=== PATIENT | female | born 1975 | race Caucasian/White ===

== ENCOUNTER 2016-04-03 09:21 | Emergency (ER) | payer OTHER ==
[2016-04-03] MEDS ORDERED: ASPIRIN 81 MG CHEW TABLET As Ordered ONE (10:20)
[2016-04-03 10:28] LABS: BASO # 0.1 K/mm3 (0.0-0.2); BASO % 0.7 % (0.0-1.0); EOS # 0.1 K/mm3 (0.0-0.50); EOS % 1.2 % (0.0-3.0); LARGE UNSTAINED CELL # 0.2 K/mm3 (0.0-0.4); LARGE UNSTAINED CELL % 1.7 % (0.0-4.0); LYMPH # 2.7 K/mm3 (1.5-4.5); LYMPH % 25.7 % (24.0-44.0); MEAN CORPUSCULAR HEMOGLOBIN 29.2 pg (27.0-33.0); MEAN CORPUSCULAR HGB CONC 32.6 g/dl (32.0-36.5); MEAN CORPUSCULAR VOLUME 89.6 fl (80.0-96.0); MONO # 0.6 K/mm3 (0.0-0.8); MONO % 5.2 % (0.0-5.0); NEUTROPHILS % 65.6 % (36.0-66.0); PLATELET COUNT, AUTOMATED 347 k/mm3 (150-450); RED CELL DISTRIBUTION WIDTH 12.9 % (11.5-14.5); WHITE BLOOD COUNT 10.6 K/mm3 (4.0-10.0)
[2016-04-03 10:36] LABS: ANION GAP 8 MEQ/L (8-16); BLOOD UREA NITROGEN 9 MG/DL (7-18); CARBON DIOXIDE LEVEL 28 MEQ/L (21-32); CHLORIDE LEVEL 106 MEQ/L (98-107); CREATININE FOR GFR 0.88 MG/DL (0.55-1.02); FREE T4 1.05 NG/DL (0.76-1.46); GLOMERULAR FILTRATION RATE > 60.0 (>58); GLUCOSE, FASTING 124 MG/DL (70-105); POTASSIUM SERUM 3.8 MEQ/L (3.5-5.1); SODIUM LEVEL 142 MEQ/L (136-145)
--- NOTE | 2016-04-03 12:25 | REP ---
PORTABLE CHEST: AP portable view of the chest is performed. Comparison 06/07/2013. There is no acute infiltrate. Mild fibrotic changes are seen bilaterally. The heart is normal in size. The mediastinal silhouette is unchanged. IMPRESSION: No acute infiltrate. Signed by Kerwin Hart MD 04/03/2016 12:39 P
--- NOTE | 2016-04-03 14:44 | EDDOCDS ---
Physician Documentation [facility] Name: Althea Cedillo Age: 40 yrs Sex: Female : 1975 Arrival Date: 04/03/2016 Time: 09:21 Bed 12 Private MD: KANWAL FIORE Disposition: 04/03 13:39 Critical Care: Critical care not applicable. pc Disposition: 04/03/16 14:28 Discharged to Home/Self Care. Impression: Palpitations, Chest pain, unspecified. - Condition is Stable. - Discharge Instructions: Nonspecific Chest Pain, Palpitations. - Prescriptions for Aspirin 81 mg Oral - take 1 tablet by ORAL route once daily; 30 tablet. - Medication Reconciliation, Local Pharmacy Hours form. - Follow up: Angel Herr; When: April 14, at 1:00pm; Reason: Further diagnostic work-up, Recheck today's complaints, To establish care. - Problem is new. - Symptoms have improved. HPI: 10:22 This 40 yrs old Female presents to ER via Walkin/Carried/Asstd with pc complaints of Palpitations. 10:22 The history is obtained from the patient. She was at work, doing her usual chores, pc lifting trays, when she suddenly "felt weird. My heart was beating funny and I thought I was going to pass out. I had to sit down. I felt dizzy and then my chest felt heavy", pointing to her midsternum. She denies any headache, visual changes, nausea ore vomiting. She presents stating her jaws are aching and are sore just to touch or chew. She has no palpitations currently but has upper chest "aching". At their worst, the symptoms were a 8 out of 10. In the emergency department, the symptoms are a 3 out of 10. There were no modifying factors noted. The patient has not experienced similar symptoms in the past. The patient has not recently seen a physician. Historical: - Allergies: SULFA (SULFONAMIDES) (Hives); - Home Meds: 1. Januvia 100 mg oral tab 1 tab once daily 2. ranitidine HCl 300 mg Oral cap 1 cap once daily 3. Mirena 20 mcg/24 hr (5 years) intrauterine IUD - PMHx: Diabetes - NIDDM: controlled; GERD; - PSHx: none; - The history from nurses notes was reviewed: and I agree with what is documented. - Social history: Smoking status: Patient uses tobacco products, current every day smoker. No barriers to communication noted, The patient speaks fluent Mohawk. - Family history: Not pertinent. - : The pt / caregiver states he / she is not on anticoagulants. Home medication list is obtained from the patient. - Hospitalizations: : No recent hospitalization is reported. - Exposure Risk Screening:: None identified. - Immunization history:: All immunizations up-to-date. - Social history:: the patient smokes cigarettes 1ppd the patient drinks alcohol. 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 pc Exam: 10:22 General Appearance: no acute distress, alert, anxious. pc 10:22 EENT: normal eye inspection, ears, nose and throat normal, pharynx normal, mucous membranes moist 10:22 Neck: The exam reveals no acute abnormalities. ROM is normal and painless. No nuchal rigidity is noted.. 10:22 Respiratory: no respiratory distress, normal breath sounds, chest non-tender. 10:22 CVS: regular pulse rate, regular rhythm, normal S1 and S2, no murmurs, strong peripheral pulses, normal capillary refill. 10:22 Abdomen: soft, non-tender, no organomegaly, normal bowel sounds. 10:22 Back: normal inspection. 10:22 : bladder is non-distended, non-tender. 10:22 Skin: skin color is normal, warm, dry, no rashes, no lesions. 10:22 Extremities: The extremities have a grossly normal appearance, are non-tender, without acute ROM abnormalities, no pedal edema. 10:22 Neuro: oriented x 3, cranial nerves normal as tested, no motor deficits, no sensory deficits, normal gait. 10:22 Psych: normal mood. Vital Signs: 09:23 BP 144 / 75; Pulse 92; Resp 18; Temp 97.7(O); Pulse Ox 100% on R/A; Weight 78.93 kg / elp 174.01 lbs (R); Height 5 ft. 8 in. (172.72 cm) (R); Pain 8/10; 10:21 BP 112 / 68 (auto/); ead 10:23 Pulse 72 MON; Resp 16; Pulse Ox 97% on R/A; Pain 3/10; ead 10:30 BP 106 / 61; Pain 0/10; ead 10:58 BP 124 / 65 (auto/); ead 10:58 Pulse 66 MON; Pulse Ox 98% ; ead 11:13 BP 109 / 55 (auto/); ead 11:15 Pulse 62 MON; Pulse Ox 97% ; ead 11:28 BP 109 / 62 (auto/); ead 11:28 Pulse 62 MON; Pulse Ox 96% ; ead 11:43 BP 102 / 62 (auto/); ead 11:44 Pulse 70 MON; Pulse Ox 95% ; ead 11:58 BP 97 / 58 (auto/); ead 12:10 Pulse 72 MON; Pulse Ox 95% ; ead 12:13 BP 97 / 55 (auto/); ead 12:13 Pulse 70 MON; Pulse Ox 94% ; ead 12:28 BP 101 / 55 (auto/); ead 12:28 Pulse 68 MON; Pulse Ox 95% ; ead 12:43 BP 95 / 52 (auto/); ead 12:43 Pulse 70 MON; Pulse Ox 96% ; ead 14:36 BP 125 / 66 (auto/); ead 14:36 Pulse 84 MON; Resp 16; Temp 97.7(O); Pulse Ox 97% on R/A; Pain 0/10; ead 09:23 Body Mass Index 26.46 (78.93 kg, 172.72 cm) elp MDM: 09:27 ECG WITH READING ER PHYS+CARDIAG ordered. EDMS 09:47 Test interpretation: EKG. pc 10:09 Aspirin Chewable Tablet 324 mg PO once ordered. pc 10:09 Case Manager Specialist/Pulse Ox/q 30 min VS ordered. pc 10:09 IV Saline Lock ordered. pc 10:09 Rhythm Strip to chart ordered. pc 10:09 Nitrostat 0.4 mg Sublingual once ordered. pc 10:10 Basic Metabolic Profile Ordered. EDMS 10:10 CBC with Diff Ordered. EDMS 10:10 Cardiac Injury Profile Ordered. EDMS 10:10 Troponin Ordered. EDMS 10:10 TSH with Free T4 Ordered. EDMS 10:10 A1C Ordered. EDMS 10:11 portable chest Ordered. EDMS 10:13 Financial registration complete. lg 10:17 [facility] [place] Payment Agreement was scanned into [employer] and attached to record. lg 10:22 Differential Diagnosis: palpitations, central chest pressure r/o ACS. Plan: labs, EKG, pc imaging, meds. Data reviewed: old medical records, vital signs, nurses notes, EKG(s). 10:49 Basic Metabolic Profile Reviewed. pc 10:49 CBC with Diff Reviewed. pc 10:49 Cardiac Injury Profile Reviewed. pc 10:49 Troponin Reviewed. pc 10:49 TSH with Free T4 Reviewed. pc 10:56 A1C Reviewed. pc 10:57 Redraw CIP &Troponin (put time in details section) ordered. pc 10:57 Repeat EKG (put time details section) ordered. pc 11:04 Redraw CIP &Troponin (put time in details section) complete. lbd 11:04 Repeat EKG (put time details section) complete. lbd 11:07 CARDIAC MARKER PANEL Ordered. EDMS 11:08 ECG WITH READING ER PHYS ordered. EDMS 13:32 CARDIAC MARKER PANEL Reviewed. pc 13:32 portable chest Reviewed. pc 13:39 Test interpretation: EKG. pc 13:39 Test interpretation: LAB - all labs as ordered have been reviewed, interpreted and pc considered in the overall management of the clinical presentation; X-RAY - interpreted by Radiologist and personally reviewed, 1 view chest no acute disease. The patient has been re-examined and re-evaluated. The patient's symptoms have mildly improved after treatment. Physician consultation: Dr. Angel Herr was contacted at 13:40, regarding patient's condition, and will see patient in ED. Disposition: The historical points, examination findings, and any diagnostic results supporting the provided diagnosis, were discussed with the patient or legal guardian. The need for outpatient follow up with the provider listed on their discharge instructions was discussed. They were encouraged to return to [facility], or the nearest ED, if symptoms worsen/persist, or for any other questions/concerns. EC:47 Rate is 72 beats/min. Rhythm is regular, Normal Sinus Rhythm. QRS [place] is Normal. CT pc interval is normal. QRS interval is normal. QT interval is normal. No Q waves. T waves are Normal. No ST changes noted. Clinical impression: Normal Sinus Rhythm. 13:39 Rate is 61 beats/min. Rhythm is regular, Normal Sinus Rhythm. QRS [place] is Normal. CT pc interval is normal. QRS interval is normal. QT interval is normal. No Q waves. T waves are Normal. No ST changes noted. Clinical impression: Normal Sinus Rhythm. Administered Medications: 10:24 Drug: Aspirin 324 mg [aspirin 81 mg chewable tablet (4 tabs)] Route: PO; ead 10:24 Drug: Nitrostat 0.4 mg [Nitrostat 0.4 mg sublingual tablet (1 tabs)] Route: Sublingual; ead 10:30 Follow up: BP 106 / 61; Pain 0/10 Adult; Response: No Adverse Reaction; Pain is resolvedead Signatures: Dispatcher [employer] EDMS Tyrel Peacock MD MD pc Daly, Linda, Structural Steel Worker Apprentice Unit lbd Sebas James, Carlitos Urbina lg Sandhya Pal RN RN jjr Dunaway, Emily, RN RN ead The chart was reviewed and I authenticate all verbal orders and agree with the evaluation and treatment provided.Attachments: 10:17 [facility] [place] Payment Agreement lg MTDD
--- NOTE | 2016-04-03 14:44 | EDDOCDS ---
Nurse's Notes [facility] Name: Althea Cedillo Age: 40 yrs Sex: Female : 1975 Arrival Date: 04/03/2016 Time: 09:21 Bed 12 Private MD: KANWAL FIORE Diagnosis: Palpitations;Chest pain, unspecified Presentation: 04/03 09:29 Presenting complaint: Patient states: sudden onset substernal chest pressure one hour jjr ago reports dizziness and SOB. Aspirin was not taken prior to arrival. Adult Sepsis Screening: The patient does not have new or worsening altered mentation. Patient's respiratory rate is less than 22. Systolic blood pressure is greater than 100. Patient has a qSOFA score of 0- Negative Sepsis Screen. Suicide/Homicide risk assessment- the patient denies having any suicidal and/or homicidal ideations and does not present with any other emotional, behavioral or mental health complaints. Status: Patient is not a customer servicer or dependent. Transition of care: patient was not received from another setting of care. 09:29 Acuity: SARAH Level 2 jjr 09:29 Method Of Arrival: Walkin/Carried/Asstd jjr Triage Assessment: 09:33 General: Appears uncomfortable, Behavior is appropriate for age. Pain: Location: jjr mid-sternal area. HIV screening NA for this visit Offered previously. Cardiovascular: Chest pain is described as Pain is 7 out of 10 on a pain scale. radiates to left chest episodes are continuous began 1 hour prior to arrival. 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 Januvia 100 mg oral tab 1 tab once daily 2. ranitidine HCl 300 mg Oral cap 1 cap once daily 3. Mirena 20 mcg/24 hr (5 years) intrauterine IUD - PMHx: Diabetes - NIDDM: controlled; GERD; - PSHx: none; - The history from nurses notes was reviewed: and I agree with what is documented. - Social history: Smoking status: Patient uses tobacco products, current every day smoker. No barriers to communication noted, The patient speaks fluent Macedonian. - Family history: Not pertinent. - : The pt / caregiver states he / she is not on anticoagulants. Home medication list is obtained from the patient. - Hospitalizations: : No recent hospitalization is reported. - Exposure Risk Screening:: None identified. - Immunization history:: All immunizations up-to-date. - Social history:: the patient smokes cigarettes 1ppd the patient drinks alcohol. Screenin:37 Screening information is obtained from the patient. Fall risk: No risks identified. ead Assistance ADL's: requires no assistance with activities of daily living. Abuse/DV Screen: The patient / caregiver reports he/she is: not in a situation that causes fear, pain or injury. Nutritional screening: No deficits noted. Advance Directives: Currently, there is no health care proxy. There is no active DNR order. There is no living will. There is no Power of Pediatric Assistant. home support is adequate. Assessment: 09:38 General: Appears in no apparent distress, Behavior is appropriate for age, cooperative. ead Pain: Location: chest. Neurological: Level of Consciousness is awake, alert, obeys commands, Oriented to person, place, time. Cardiovascular: Capillary refill < 3 seconds Heart tones S1 S2 present. Cardiovascular: Reports palpitations. Respiratory: Airway is patent Respiratory effort is even, unlabored, Respiratory pattern is regular, symmetrical, Breath sounds are clear bilaterally. Derm: Skin is pink, warm & dry. 10:24 General: Appears in no apparent distress, comfortable, Behavior is appropriate for age, ead cooperative. Cardiovascular: Rhythm is sinus rhythm No ectopy. Respiratory: Denies shortness of breath. Derm: Skin is pink, warm & dry. 11:37 General: Appears in no apparent distress, comfortable, Behavior is appropriate for age, ead cooperative. Neurological: No deficits noted. Cardiovascular: Rhythm is sinus rhythm Chest pain is denied. Respiratory: Airway is patent Respiratory effort is even, unlabored. Derm: Skin is pink, warm & dry. 12:25 Adult Sepsis Screening: The patient does not have new or worsening altered mentation. ead Patient's respiratory rate is less than 22. Systolic blood pressure is greater than 100. Patient has a qSOFA score of 0- Negative Sepsis Screen. 12:54 General: Appears in no apparent distress, comfortable, Behavior is appropriate for age, ead cooperative. Pain: Denies pain. Neurological: Level of Consciousness is awake, alert, obeys commands, Oriented to person, place, time. Cardiovascular: Rhythm is sinus rhythm Reports palpitations. Derm: No deficits noted. 14:00 General: Appears in no apparent distress, comfortable, Behavior is appropriate for age, ead cooperative. Neurological: No deficits noted. Respiratory: Denies shortness of breath. Derm: Skin is pink, warm & dry. 14:43 General: Appears in no apparent distress, comfortable, Behavior is appropriate for age, ead cooperative. Neurological: Level of Consciousness is awake, alert, obeys commands, Oriented to person, place, time. Cardiovascular: Chest pain is denied. Respiratory: Airway is patent Respiratory effort is even, unlabored. Derm: No deficits noted. Vital Signs: 09:23 BP 144 / 75; Pulse 92; Resp 18; Temp 97.7(O); Pulse Ox 100% on R/A; Weight 78.93 kg elp (R); Height 5 ft. 8 in. (172.72 cm) (R); Pain 8/10; 10:21 BP 112 / 68 (auto/); ead 10:23 Pulse 72 MON; Resp 16; Pulse Ox 97% on R/A; Pain 3/10; ead 10:30 BP 106 / 61; Pain 0/10; ead 10:58 BP 124 / 65 (auto/); ead 10:58 Pulse 66 MON; Pulse Ox 98% ; ead 11:13 BP 109 / 55 (auto/); ead 11:15 Pulse 62 MON; Pulse Ox 97% ; ead 11:28 BP 109 / 62 (auto/); ead 11:28 Pulse 62 MON; Pulse Ox 96% ; ead 11:43 BP 102 / 62 (auto/); ead 11:44 Pulse 70 MON; Pulse Ox 95% ; ead 11:58 BP 97 / 58 (auto/); ead 12:10 Pulse 72 MON; Pulse Ox 95% ; ead 12:13 BP 97 / 55 (auto/); ead 12:13 Pulse 70 MON; Pulse Ox 94% ; ead 12:28 BP 101 / 55 (auto/); ead 12:28 Pulse 68 MON; Pulse Ox 95% ; ead 12:43 BP 95 / 52 (auto/); ead 12:43 Pulse 70 MON; Pulse Ox 96% ; ead 14:36 BP 125 / 66 (auto/); ead 14:36 Pulse 84 MON; Resp 16; Temp 97.7(O); Pulse Ox 97% on R/A; Pain 0/10; ead 09:23 Body Mass Index 26.46 (78.93 kg, 172.72 cm) elp Vitals: 09:23 Log In Time: April 03, 2016 at 09:22. RN notified that patient meets Red Flag elp criteria. ED Course: 09:22 Patient visited by Soraya Durham PCA. elp 09:22 KANWAL FIORE is Private Physician. elp 09:22 Patient moved to Waiting elp 09:24 Patient visited by Soraya Durham PCA. elp 09:26 Lore Larose RN is Primary Nurse. elp 09:26 Patient moved to 12 elp 09:31 Triage Initiated jjr 09:37 Patient visited by Lore Larose RN. ead 09:37 The patient / caregiver is instructed regarding the plan of care and ED course. Patient ead has correct armband on for positive identification. Placed in gown. Bed in low position. Call light in reach. Side rails up X 1. Adult w/ patient. senior care assistant on. Pulse ox on. NIBP on. 09:37 Inserted saline lock: 18 gauge in left antecubital area and blood collected. The ead patient tolerated the procedure well. 09:44 EKG done. (by ED staff). Reviewed by Tyrel Peacock MD. rn1 09:47 Tyrel Peacock MD is Attending Physician. pc 10:08 Patient visited by Tyrel Peacock MD. pc 10:17 [facility] Payment Agreement was scanned into [employer] and attached to record. lg 10:18 A1C Sent. ead 10:18 TSH with Free T4 Sent. ead 10:18 Troponin Sent. ead 10:18 Basic Metabolic Profile Sent. ead 10:18 CBC with Diff Sent. ead 10:18 Cardiac Injury Profile Sent. ead 10:24 Patient visited by Lore Larose RN. ead 10:46 Patient visited by Lore Larose,BRENDA. ead 11:37 Patient visited by Lore Larose,BRENDA. ead 12:37 portable chest Returned. EDMS 12:41 Patient visited by Lore Larose RN. ead 12:53 Lore Larose RN is Primary Nurse. ead 12:54 Patient visited by Lore Larose RN. ead 12:54 CARDIAC MARKER PANEL Sent. ead 13:26 EKG done. (by ED staff). Reviewed by Tyrel Peacock MD. rn1 14:00 Patient visited by Lore Larose RN. ead 14:27 Angel Herr is Referral Physician. pc 14:40 Discontinued lock intact, bleeding controlled, pressure dressing applied, No ead redness/swelling at site. No procedures done that require assistance. Administered Medications: 10:24 Drug: Aspirin 324 mg [aspirin 81 mg chewable tablet (4 tabs)] Route: PO; ead 10:24 Drug: Nitrostat 0.4 mg [Nitrostat 0.4 mg sublingual tablet (1 tabs)] Route: Sublingual; ead 10:30 Follow up: BP 106 / 61; Pain 0/10 Adult; Response: No Adverse Reaction; Pain is resolvedead Order Results: Lab Order: Basic Metabolic Profile; SPEC'M 04/03/16 09:35 Test: GLUCOSE, FASTING; Value: 124; Range: 70-105; Abnormal: Above high normal; Units: MG/DL; Status: F Test: BLOOD UREA NITROGEN; Value: 9; Range: 7-18; Units: MG/DL; Status: F Test: CREATININE FOR GFR; Value: 0.88; Range: 0.55-1.02; Units: MG/DL; Status: F Test: GLOMERULAR FILTRATION RATE; Value: > 60.0; Range: >58; Status: F Test: SODIUM LEVEL; Value: 142; Range: 136-145; Units: MEQ/L; Status: F Test: POTASSIUM SERUM; Value: 3.8; Range: 3.5-5.1; Units: MEQ/L; Status: F Test: CHLORIDE LEVEL; Value: 106; Range: 98-107; Units: MEQ/L; Status: F Test: CARBON DIOXIDE LEVEL; Value: 28; Range: 21-32; Units: MEQ/L; Status: F Test: ANION GAP; Value: 8; Range: 8-16; Units: MEQ/L; Status: F Test: CALCIUM LEVEL; Value: 9.0; Range: 8.5-10.1; Units: MG/DL; Status: F Test Note: ; Units are mL/min/1.73 m2 Chronic Kidney Disease Staging per NKF: Stage I & II GFR >=60 Normal to Mildly Decreased Stage III GFR 30-59 Moderately Decreased Stage IV GFR 15-29 Severely Decreased Stage V GFR <15 Very Little GFR Left ESRD GFR <15 on TURNER MACHINE Lab Order: CBC with Diff; CHRISTIAN 04/03/16 09:35 Test: WHITE BLOOD COUNT; Value: 10.6; Range: 4.0-10.0; Abnormal: Above high normal; Units: K/mm3; Status: F Test: RED BLOOD COUNT; Value: 5.25; Range: 4.00-5.40; Units: M/mm3; Status: F Test: HEMOGLOBIN; Value: 15.3; Range: 12.0-16.0; Units: g/dl; Status: F Test: HEMATOCRIT; Value: 47.0; Range: 36.0-47.0; Units: %; Status: F Test: MEAN CORPUSCULAR VOLUME; Value: 89.6; Range: 80.0-96.0; Units: fl; Status: F Test: MEAN CORPUSCULAR HEMOGLOBIN; Value: 29.2; Range: 27.0-33.0; Units: pg; Status: F Test: MEAN CORPUSCULAR HGB CONC; Value: 32.6; Range: 32.0-36.5; Units: g/dl; Status: F Test: RED CELL DISTRIBUTION WIDTH; Value: 12.9; Range: 11.5-14.5; Units: %; Status: F Test: PLATELET COUNT, AUTOMATED; Value: 347; Range: 150-450; Units: k/mm3; Status: F Test: NEUTROPHILS %; Value: 65.6; Range: 36.0-66.0; Units: %; Status: F Test: LYMPH %; Value: 25.7; Range: 24.0-44.0; Units: %; Status: F Test: MONO %; Value: 5.2; Range: 0.0-5.0; Abnormal: Above high normal; Units: %; Status: F Test: EOS %; Value: 1.2; Range: 0.0-3.0; Units: %; Status: F Test: BASO %; Value: 0.7; Range: 0.0-1.0; Units: %; Status: F Test: LARGE UNSTAINED CELL %; Value: 1.7; Range: 0.0-4.0; Units: %; Status: F Test: NEUTROPHILS #; Value: 7.0; Range: 1.8-7.7; Units: K/mm3; Status: F Test: LYMPH #; Value: 2.7; Range: 1.5-4.5; Units: K/mm3; Status: F Test: MONO #; Value: 0.6; Range: 0.0-0.8; Units: K/mm3; Status: F Test: EOS #; Value: 0.1; Range: 0.0-0.50; Units: K/mm3; Status: F Test: BASO #; Value: 0.1; Range: 0.0-0.2; Units: K/mm3; Status: F Test: LARGE UNSTAINED CELL #; Value: 0.2; Range: 0.0-0.4; Units: K/mm3; Status: F Lab Order: Cardiac Injury Profile; SPEC'M 04/03/16 09:35 Test: CPK CREATINE PHOSPHOKINASE; Value: 92; Range: 26-192; Units: U/L; Status: F Test: CK-MB VALUE MASS; Value: 1.0; Range: 0.0-3.6; Units: NG/ML; Status: F Test: MB/CK RELATIVE INDEX; Value: 1.08; Range: < OR =4; Status: F Test Note: ; DIAGNOSIS CRITERIA MMB ng/ml Relative Index (RI) NON-AMI < or = 5 N/A HART ZONE > 5 < or = 4 AMI > 5 > 4 Lab Order: Troponin; SPEC'M 04/03/16 09:35 Test: TROPONIN I; Value: < 0.02; Range: < 0.10; Units: NG/ML; Status: F Test Note: ; Troponin I Reference Interval for [employer] LOCI: 99th Percentile= 0.00-0.045 ng/ml Risk Stratification: <= 0.10 ng/ml Decreased Risk for Adverse Clinical Events. 0.10-1.50 ng/ml Increased Risk for Adverse Clinical Events. Evaluation of additional criterion and/or repeat testing in 2-6 hours is suggested to rule out myocardial damage. >= 1.50 ng/ml Indicative of Myocardial Injury. Lab Order: TSH with Free T4; [facility] 04/03/16 09:35 Test: THYROID STIMULATING HORMONE; Value: 1.830; Range: 0.358-3.740; Units: uIU/ML; Status: F Test: FREE T4; Value: 1.05; Range: 0.76-1.46; Units: NG/DL; Status: F Lab Order: A1C; [facility] 04/03/16 09:35 Test: HEMOGLOBIN A1c; Value: 5.8; Range: 4.5-6.2; Units: %; Status: F Test: ESTIMATED AVERAGE GLUCOSE; Value: 120; Range: 60-110; Abnormal: Above high normal; Units: MG/DL; Status: F Lab Order: CARDIAC MARKER PANEL; [facility] 04/03/16 12:52 Test: CPK CREATINE PHOSPHOKINASE; Value: 77; Range: 26-192; Units: U/L; Status: F Test: CK-MB VALUE MASS; Value: 1.0; Range: 0.0-3.6; Units: NG/ML; Status: F Test: MB/CK RELATIVE INDEX; Value: 1.29; Range: < OR =4; Status: F Test: TROPONIN I; Value: < 0.02; Range: < 0.10; Units: NG/ML; Status: F Test Note: ; DIAGNOSIS CRITERIA MMB ng/ml Relative Index (RI) NON-AMI < or = 5 N/A HART ZONE > 5 < or = 4 AMI > 5 > 4 Radiology Order: portable chest Test: portable chest REASON FOR EXAMINATION: Chest Pain; PORTABLE CHEST:; ; AP portable view of the chest is performed.; ; Comparison 06/07/2013.; ; There is no acute infiltrate. Mild fibrotic changes are seen bilaterally. The; heart is normal in size. The mediastinal silhouette is unchanged.; ; IMPRESSION:; ; No acute infiltrate.; ; ; Signed by; Kerwin Hart MD 04/03/2016 12:39 P; Outcome: 14:28 Discharge ordered by Provider. 14:42 Discharge Assessment: Patient awake and alert. obeys commands, Oriented to person, ead place and time. patient administered narcotics - no. The following High Risk Discharge criteria are identified: None. Discharged to home ambulatory, with friend. Condition: improved. Discharge instructions given to patient, Instructed on discharge instructions, follow up and referral plans. medication usage, Demonstrated understanding of instructions, medications, Pt was receptive of discharge instructions/ teaching. Prescriptions given X 1. No special radiology studies were completed. Property sent home with patient. 14:43 Patient left the ED. ead Signatures: Dispatcher [employer] EDMS Tyrel Peacock MD MD pc Ganter, LoriLee, Sandhya Sethi lg, RN RN Soraya Javed PCA PCA elp Dunaway, Emily,RN RN Rasheed Jenkins rn1 NANI
--- NOTE | 2016-04-04 08:48 | ECGEPIP ---
Stationary ECG Study [facility] - ED Test Date: 2016-04-03 Pat Name: VICENTE CHAMORRO Department: Room: - Gender: F Event Av Operator: rn : 1975 Requested By: YURI WARE Order Number: [id number] Reading MD: Patricia Silva Measurements Intervals [place] Rate: 72 P: 50 TX: 137 QRS: 53 QRSD: 87 T: 42 QT: 360 QTc: 397 Interpretive Statements SINUS RHYTHM NSTTW ABNORMALITY SIMILAR 06/07/13 Electronically Signed On 04-04-2016 8:48:08 EST by Patricia Silva
--- NOTE | 2016-04-04 08:52 | ECGEPIP ---
Stationary ECG Study [facility] - ED Test Date: 2016-04-03 Pat Name: VICENTE CHAMORRO Department: Room: - Gender: F [employer]: jose : 1975 Requested By: Tyrel Nettles Order Number: [id number] Reading MD: Patricia Silva Measurements Intervals [place] Rate: 61 P: 54 SD: 133 QRS: 48 QRSD: 82 T: 39 QT: 396 QTc: 400 Interpretive Statements SINUS RHYTHM NSTTW ABNORMALITY DECREASED RATE 04/03/16 Electronically Signed On 04-04-2016 8:52:02 EST by Patricia Silva
--- NOTE | 2016-04-05 15:44 | EDDOCDS ---
Physician Documentation [facility] Name: Althea Cedillo Age: 40 yrs Sex: Female : 1975 Arrival Date: 04/03/2016 Time: 09:21 Bed 12 Private MD: KANWAL FIORE Disposition: 04/03 13:39 Critical Care: Critical care not applicable. pc Disposition: 04/03/16 14:28 Discharged to Home/Self Care. Impression: Palpitations, Chest pain, unspecified. - Condition is Stable. - Discharge Instructions: Nonspecific Chest Pain, Palpitations. - Prescriptions for Aspirin 81 mg Oral - take 1 tablet by ORAL route once daily; 30 tablet. - Medication Reconciliation, Local Pharmacy Hours form. - Follow up: Angel Herr; When: April 14, at 1:00pm; Reason: Further diagnostic work-up, Recheck today's complaints, To establish care. - Problem is new. - Symptoms have improved. HPI: 10:22 This 40 yrs old Female presents to ER via Walkin/Carried/Asstd with pc complaints of Palpitations. 10:22 The history is obtained from the patient. She was at work, doing her usual chores, pc lifting trays, when she suddenly "felt weird. My heart was beating funny and I thought I was going to pass out. I had to sit down. I felt dizzy and then my chest felt heavy", pointing to her midsternum. She denies any headache, visual changes, nausea ore vomiting. She presents stating her jaws are aching and are sore just to touch or chew. She has no palpitations currently but has upper chest "aching". At their worst, the symptoms were a 8 out of 10. In the emergency department, the symptoms are a 3 out of 10. There were no modifying factors noted. The patient has not experienced similar symptoms in the past. The patient has not recently seen a physician. Historical: - Allergies: SULFA (SULFONAMIDES) (Hives); - Home Meds: 1. Januvia 100 mg oral tab 1 tab once daily 2. ranitidine HCl 300 mg Oral cap 1 cap once daily 3. Mirena 20 mcg/24 hr (5 years) intrauterine IUD - PMHx: Diabetes - NIDDM: controlled; GERD; - PSHx: none; - The history from nurses notes was reviewed: and I agree with what is documented. - Social history: Smoking status: Patient uses tobacco products, current every day smoker. No barriers to communication noted, The patient speaks fluent Yi. - Family history: Not pertinent. - : The pt / caregiver states he / she is not on anticoagulants. Home medication list is obtained from the patient. - Hospitalizations: : No recent hospitalization is reported. - Exposure Risk Screening:: None identified. - Immunization history:: All immunizations up-to-date. - Social history:: the patient smokes cigarettes 1ppd the patient drinks alcohol. ACID DUMPER: 09:32 LMP N/A - control method jjr ROS: 10:22 All systems are negative except as listed. pc Exam: 10:22 General Appearance: no acute distress, alert, anxious. pc 10:22 EENT: normal eye inspection, ears, nose and throat normal, pharynx normal, mucous membranes moist 10:22 Neck: The exam reveals no acute abnormalities. ROM is normal and painless. No nuchal rigidity is noted.. 10:22 Respiratory: no respiratory distress, normal breath sounds, chest non-tender. 10:22 CVS: regular pulse rate, regular rhythm, normal S1 and S2, no murmurs, strong peripheral pulses, normal capillary refill. 10:22 Abdomen: soft, non-tender, no organomegaly, normal bowel sounds. 10:22 Back: normal inspection. 10:22 : bladder is non-distended, non-tender. 10:22 Skin: skin color is normal, warm, dry, no rashes, no lesions. 10:22 Extremities: The extremities have a grossly normal appearance, are non-tender, without acute ROM abnormalities, no pedal edema. 10:22 Neuro: oriented x 3, cranial nerves normal as tested, no motor deficits, no sensory deficits, normal gait. 10:22 Psych: normal mood. Vital Signs: 09:23 BP 144 / 75; Pulse 92; Resp 18; Temp 97.7(O); Pulse Ox 100% on R/A; Weight 78.93 kg / elp 174.01 lbs (R); Height 5 ft. 8 in. (172.72 cm) (R); Pain 8/10; 10:21 BP 112 / 68 (auto/); ead 10:23 Pulse 72 MON; Resp 16; Pulse Ox 97% on R/A; Pain 3/10; ead 10:30 BP 106 / 61; Pain 0/10; ead 10:58 BP 124 / 65 (auto/); ead 10:58 Pulse 66 MON; Pulse Ox 98% ; ead 11:13 BP 109 / 55 (auto/); ead 11:15 Pulse 62 MON; Pulse Ox 97% ; ead 11:28 BP 109 / 62 (auto/); ead 11:28 Pulse 62 MON; Pulse Ox 96% ; ead 11:43 BP 102 / 62 (auto/); ead 11:44 Pulse 70 MON; Pulse Ox 95% ; ead 11:58 BP 97 / 58 (auto/); ead 12:10 Pulse 72 MON; Pulse Ox 95% ; ead 12:13 BP 97 / 55 (auto/); ead 12:13 Pulse 70 MON; Pulse Ox 94% ; ead 12:28 BP 101 / 55 (auto/); ead 12:28 Pulse 68 MON; Pulse Ox 95% ; ead 12:43 BP 95 / 52 (auto/); ead 12:43 Pulse 70 MON; Pulse Ox 96% ; ead 14:36 BP 125 / 66 (auto/); ead 14:36 Pulse 84 MON; Resp 16; Temp 97.7(O); Pulse Ox 97% on R/A; Pain 0/10; ead 09:23 Body Mass Index 26.46 (78.93 kg, 172.72 cm) elp MDM: 09:27 ECG WITH READING ER PHYS+CARDIAG ordered. EDMS 09:47 Test interpretation: EKG. pc 10:09 Aspirin Chewable Tablet 324 mg PO once ordered. pc 10:09 Life Science Research Assistant/Pulse Ox/q 30 min VS ordered. pc 10:09 IV Saline Lock ordered. pc 10:09 Rhythm Strip to chart ordered. pc 10:09 Nitrostat 0.4 mg Sublingual once ordered. pc 10:10 Basic Metabolic Profile Ordered. EDMS 10:10 CBC with Diff Ordered. EDMS 10:10 Cardiac Injury Profile Ordered. EDMS 10:10 Troponin Ordered. EDMS 10:10 TSH with Free T4 Ordered. EDMS 10:10 A1C Ordered. EDMS 10:11 portable chest Ordered. EDMS 10:13 Financial registration complete. lg 10:17 [facility] Payment Agreement was scanned into [employer] and attached to record. lg 10:22 Differential Diagnosis: palpitations, central chest pressure r/o ACS. Plan: labs, EKG, pc imaging, meds. Data reviewed: old medical records, vital signs, nurses notes, EKG(s). 10:49 Basic Metabolic Profile Reviewed. pc 10:49 CBC with Diff Reviewed. pc 10:49 Cardiac Injury Profile Reviewed. pc 10:49 Troponin Reviewed. pc 10:49 TSH with Free T4 Reviewed. pc 10:56 A1C Reviewed. pc 10:57 Redraw CIP &Troponin (put time in details section) ordered. pc 10:57 Repeat EKG (put time details section) ordered. pc 11:04 Redraw CIP &Troponin (put time in details section) complete. lbd 11:04 Repeat EKG (put time details section) complete. lbd 11:07 CARDIAC MARKER PANEL Ordered. EDMS 11:08 ECG WITH READING ER PHYS ordered. EDMS 13:32 CARDIAC MARKER PANEL Reviewed. pc 13:32 portable chest Reviewed. pc 13:39 Test interpretation: EKG. pc 13:39 Test interpretation: LAB - all labs as ordered have been reviewed, interpreted and pc considered in the overall management of the clinical presentation; X-RAY - interpreted by Radiologist and personally reviewed, 1 view chest no acute disease. The patient has been re-examined and re-evaluated. The patient's symptoms have mildly improved after treatment. Physician consultation: Dr. Angel Herr was contacted at 13:40, regarding patient's condition, and will see patient in ED. Disposition: The historical points, examination findings, and any diagnostic results supporting the provided diagnosis, were discussed with the patient or legal guardian. The need for outpatient follow up with the provider listed on their discharge instructions was discussed. They were encouraged to return to [facility], or the nearest ED, if symptoms worsen/persist, or for any other questions/concerns. 04/04 16:40 ECG/EKG was scanned into [employer] and attached to record. kf3 EC/03 09:47 Rate is 72 beats/min. Rhythm is regular, Normal Sinus Rhythm. QRS [place] is Normal. SC pc interval is normal. QRS interval is normal. QT interval is normal. No Q waves. T waves are Normal. No ST changes noted. Clinical impression: Normal Sinus Rhythm. 13:39 Rate is 61 beats/min. Rhythm is regular, Normal Sinus Rhythm. QRS [place] is Normal. SC pc interval is normal. QRS interval is normal. QT interval is normal. No Q waves. T waves are Normal. No ST changes noted. Clinical impression: Normal Sinus Rhythm. Administered Medications: 10:24 Drug: Aspirin 324 mg [aspirin 81 mg chewable tablet (4 tabs)] Route: PO; ead 10:24 Drug: Nitrostat 0.4 mg [Nitrostat 0.4 mg sublingual tablet (1 tabs)] Route: Sublingual; ead 10:30 Follow up: BP 106 / 61; Pain 0/10 Adult; Response: No Adverse Reaction; Pain is resolvedead Signatures: Dispatcher [employer] EDMS Tyrel Peacock MD MD pc Daly, Linda, Angiographer Unit lbd Sebas James, Reg Reg lg Alton Granados, Reg Reg kf3 Sandhya Pal, Lore Elkins RNRN BRENDA auguste The chart was reviewed and I authenticate all verbal orders and agree with the evaluation and treatment provided.Attachments: 10:17 [facility] Payment Agreement lg 04/04 16:40 ECG/EKG kf3 Chart Complete MTDD
--- NOTE | 2016-04-05 15:44 | EDDOCDS ---
Nurse's Notes [facility] Name: Vicente Chamorro Age: 40 yrs Sex: Female : 1975 Arrival Date: 04/03/2016 Time: 09:21 Bed 12 Private MD: KANWAL FIORE Diagnosis: Palpitations;Chest pain, unspecified Presentation: 04/03 09:29 Presenting complaint: Patient states: sudden onset substernal chest pressure one hour jjr ago reports dizziness and SOB. Aspirin was not taken prior to arrival. Adult Sepsis Screening: The patient does not have new or worsening altered mentation. Patient's respiratory rate is less than 22. Systolic blood pressure is greater than 100. Patient has a qSOFA score of 0- Negative Sepsis Screen. Suicide/Homicide risk assessment- the patient denies having any suicidal and/or homicidal ideations and does not present with any other emotional, behavioral or mental health complaints. 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 Transition of care: patient was not received from another setting of care. 09:29 Acuity: SARAH Level 2 jjr 09:29 Method Of Arrival: Walkin/Carried/Asstd jjr Triage Assessment: 09:33 General: Appears uncomfortable, Behavior is appropriate for age. Pain: Location: jjr mid-sternal area. HIV screening NA for this visit Offered previously. Cardiovascular: Chest pain is described as Pain is 7 out of 10 on a pain scale. radiates to left chest episodes are continuous began 1 hour prior to arrival. APPLICATIONS SUPPORT ANALYST: 09:32 LMP N/A - control method jjr Historical: - Allergies: SULFA (SULFONAMIDES) (Hives); - Home Meds: 1. Januvia 100 mg oral tab 1 tab once daily 2. ranitidine HCl 300 mg Oral cap 1 cap once daily 3. Mirena 20 mcg/24 hr (5 years) intrauterine IUD - PMHx: Diabetes - NIDDM: controlled; GERD; - PSHx: none; - The history from nurses notes was reviewed: and I agree with what is documented. - Social history: Smoking status: Patient uses tobacco products, current every day smoker. No barriers to communication noted, The patient speaks fluent Uzbek. - Family history: Not pertinent. - : The pt / caregiver states he / she is not on anticoagulants. Home medication list is obtained from the patient. - Hospitalizations: : No recent hospitalization is reported. - Exposure Risk Screening:: None identified. - Immunization history:: All immunizations up-to-date. - Social history:: the patient smokes cigarettes 1ppd the patient drinks alcohol. Screenin:37 Screening information is obtained from the patient. Fall risk: No risks identified. ead Assistance ADL's: requires no assistance with activities of daily living. Abuse/DV Screen: The patient / caregiver reports he/she is: not in a situation that causes fear, pain or injury. Nutritional screening: No deficits noted. Advance Directives: Currently, there is no health care proxy. There is no active DNR order. There is no living will. There is no Power of Clinical Reviewer. home support is adequate. Assessment: 09:38 General: Appears in no apparent distress, Behavior is appropriate for age, cooperative. ead Pain: Location: chest. Neurological: Level of Consciousness is awake, alert, obeys commands, Oriented to person, place, time. Cardiovascular: Capillary refill < 3 seconds Heart tones S1 S2 present. Cardiovascular: Reports palpitations. Respiratory: Airway is patent Respiratory effort is even, unlabored, Respiratory pattern is regular, symmetrical, Breath sounds are clear bilaterally. Derm: Skin is pink, warm & dry. 10:24 General: Appears in no apparent distress, comfortable, Behavior is appropriate for age, ead cooperative. Cardiovascular: Rhythm is sinus rhythm No ectopy. Respiratory: Denies shortness of breath. Derm: Skin is pink, warm & dry. 11:37 General: Appears in no apparent distress, comfortable, Behavior is appropriate for age, ead cooperative. Neurological: No deficits noted. Cardiovascular: Rhythm is sinus rhythm Chest pain is denied. Respiratory: Airway is patent Respiratory effort is even, unlabored. Derm: Skin is pink, warm & dry. 12:25 Adult Sepsis Screening: The patient does not have new or worsening altered mentation. ead Patient's respiratory rate is less than 22. Systolic blood pressure is greater than 100. Patient has a qSOFA score of 0- Negative Sepsis Screen. 12:54 General: Appears in no apparent distress, comfortable, Behavior is appropriate for age, ead cooperative. Pain: Denies pain. Neurological: Level of Consciousness is awake, alert, obeys commands, Oriented to person, place, time. Cardiovascular: Rhythm is sinus rhythm Reports palpitations. Derm: No deficits noted. 14:00 General: Appears in no apparent distress, comfortable, Behavior is appropriate for age, ead cooperative. Neurological: No deficits noted. Respiratory: Denies shortness of breath. Derm: Skin is pink, warm & dry. 14:43 General: Appears in no apparent distress, comfortable, Behavior is appropriate for age, ead cooperative. Neurological: Level of Consciousness is awake, alert, obeys commands, Oriented to person, place, time. Cardiovascular: Chest pain is denied. Respiratory: Airway is patent Respiratory effort is even, unlabored. Derm: No deficits noted. Vital Signs: 09:23 BP 144 / 75; Pulse 92; Resp 18; Temp 97.7(O); Pulse Ox 100% on R/A; Weight 78.93 kg elp (R); Height 5 ft. 8 in. (172.72 cm) (R); Pain 8/10; 10:21 BP 112 / 68 (auto/); ead 10:23 Pulse 72 MON; Resp 16; Pulse Ox 97% on R/A; Pain 3/10; ead 10:30 BP 106 / 61; Pain 0/10; ead 10:58 BP 124 / 65 (auto/); ead 10:58 Pulse 66 MON; Pulse Ox 98% ; ead 11:13 BP 109 / 55 (auto/); ead 11:15 Pulse 62 MON; Pulse Ox 97% ; ead 11:28 BP 109 / 62 (auto/); ead 11:28 Pulse 62 MON; Pulse Ox 96% ; ead 11:43 BP 102 / 62 (auto/); ead 11:44 Pulse 70 MON; Pulse Ox 95% ; ead 11:58 BP 97 / 58 (auto/); ead 12:10 Pulse 72 MON; Pulse Ox 95% ; ead 12:13 BP 97 / 55 (auto/); ead 12:13 Pulse 70 MON; Pulse Ox 94% ; ead 12:28 BP 101 / 55 (auto/); ead 12:28 Pulse 68 MON; Pulse Ox 95% ; ead 12:43 BP 95 / 52 (auto/); ead 12:43 Pulse 70 MON; Pulse Ox 96% ; ead 14:36 BP 125 / 66 (auto/); ead 14:36 Pulse 84 MON; Resp 16; Temp 97.7(O); Pulse Ox 97% on R/A; Pain 0/10; ead 09:23 Body Mass Index 26.46 (78.93 kg, 172.72 cm) elp Vitals: 09:23 Log In Time: April 03, 2016 at 09:22. RN notified that patient meets Red Flag elp criteria. ED Course: 09:22 Patient visited by Soraya Durham PCA. elp 09:22 KANWAL FIORE is Private Physician. elp 09:22 Patient moved to Waiting elp 09:24 Patient visited by Soraya Durham PCA. elp 09:26 Lore Larose RN is Primary Nurse. elp 09:26 Patient moved to 12 elp 09:31 Triage Initiated jjr 09:37 Patient visited by Lore Larose RN. ead 09:37 The patient / caregiver is instructed regarding the plan of care and ED course. Patient ead has correct armband on for positive identification. Placed in gown. Bed in low position. Call light in reach. Side rails up X 1. Adult w/ patient. quality assurance monitor on. Pulse ox on. NIBP on. 09:37 Inserted saline lock: 18 gauge in left antecubital area and blood collected. The ead patient tolerated the procedure well. 09:44 EKG done. (by ED staff). Reviewed by Tyrel Peacock MD. rn1 09:47 Tyrel Peacock MD is Attending Physician. pc 10:08 Patient visited by Tyrel Peacock MD. pc 10:17 [facility] Payment Agreement was scanned into [employer] and attached to record. lg 10:18 A1C Sent. ead 10:18 TSH with Free T4 Sent. ead 10:18 Troponin Sent. ead 10:18 Basic Metabolic Profile Sent. ead 10:18 CBC with Diff Sent. ead 10:18 Cardiac Injury Profile Sent. ead 10:24 Patient visited by Lore Larose RN. ead 10:46 Patient visited by Lore Larose,BRENDA. ead 11:37 Patient visited by Lore Larose,BRENDA. ead 12:37 portable chest Returned. EDMS 12:41 Patient visited by Lore Larose RN. ead 12:53 Lore Larose,BRENDA is Primary Nurse. ead 12:54 Patient visited by Lore Larose RN. ead 12:54 CARDIAC MARKER PANEL Sent. ead 13:26 EKG done. (by ED staff). Reviewed by Tyrel Peacock MD. rn1 14:00 Patient visited by Lore Larose RN. ead 14:27 Angel Herr is Referral Physician. pc 14:40 Discontinued lock intact, bleeding controlled, pressure dressing applied, No ead redness/swelling at site. No procedures done that require assistance. 04/04 09:23 EKG-ADULT Returned. EDMS 09:23 ECG WITH READING ER PHYS Returned. EDMS 16:40 ECG/EKG was scanned into [employer] and attached to record. kf3 Administered Medications: 04/03 10:24 Drug: Aspirin 324 mg [aspirin 81 mg chewable tablet (4 tabs)] Route: PO; ead 10:24 Drug: Nitrostat 0.4 mg [Nitrostat 0.4 mg sublingual tablet (1 tabs)] Route: Sublingual; ead 10:30 Follow up: BP 106 / 61; Pain 0/10 Adult; Response: No Adverse Reaction; Pain is resolvedead Order Results: Lab Order: Basic Metabolic Profile; SPEC'M 04/03/16 09:35 Test: GLUCOSE, FASTING; Value: 124; Range: 70-105; Abnormal: Above high normal; Units: MG/DL; Status: F Test: BLOOD UREA NITROGEN; Value: 9; Range: 7-18; Units: MG/DL; Status: F Test: CREATININE FOR GFR; Value: 0.88; Range: 0.55-1.02; Units: MG/DL; Status: F Test: GLOMERULAR FILTRATION RATE; Value: > 60.0; Range: >58; Status: F Test: SODIUM LEVEL; Value: 142; Range: 136-145; Units: MEQ/L; Status: F Test: POTASSIUM SERUM; Value: 3.8; Range: 3.5-5.1; Units: MEQ/L; Status: F Test: CHLORIDE LEVEL; Value: 106; Range: 98-107; Units: MEQ/L; Status: F Test: CARBON DIOXIDE LEVEL; Value: 28; Range: 21-32; Units: MEQ/L; Status: F Test: ANION GAP; Value: 8; Range: 8-16; Units: MEQ/L; Status: F Test: CALCIUM LEVEL; Value: 9.0; Range: 8.5-10.1; Units: MG/DL; Status: F Test Note: ; Units are mL/min/1.73 m2 Chronic Kidney Disease Staging per NKF: Stage I & II GFR >=60 Normal to Mildly Decreased Stage III GFR 30-59 Moderately Decreased Stage IV GFR 15-29 Severely Decreased Stage V GFR <15 Very Little GFR Left ESRD GFR <15 on CORE SHAPER TOP Lab Order: CBC with Diff; SPEC'M 04/03/16 09:35 Test: WHITE BLOOD COUNT; Value: 10.6; Range: 4.0-10.0; Abnormal: Above high normal; Units: K/mm3; Status: F Test: RED BLOOD COUNT; Value: 5.25; Range: 4.00-5.40; Units: M/mm3; Status: F Test: HEMOGLOBIN; Value: 15.3; Range: 12.0-16.0; Units: g/dl; Status: F Test: HEMATOCRIT; Value: 47.0; Range: 36.0-47.0; Units: %; Status: F Test: MEAN CORPUSCULAR VOLUME; Value: 89.6; Range: 80.0-96.0; Units: fl; Status: F Test: MEAN CORPUSCULAR HEMOGLOBIN; Value: 29.2; Range: 27.0-33.0; Units: pg; Status: F Test: MEAN CORPUSCULAR HGB CONC; Value: 32.6; Range: 32.0-36.5; Units: g/dl; Status: F Test: RED CELL DISTRIBUTION WIDTH; Value: 12.9; Range: 11.5-14.5; Units: %; Status: F Test: PLATELET COUNT, AUTOMATED; Value: 347; Range: 150-450; Units: k/mm3; Status: F Test: NEUTROPHILS %; Value: 65.6; Range: 36.0-66.0; Units: %; Status: F Test: LYMPH %; Value: 25.7; Range: 24.0-44.0; Units: %; Status: F Test: MONO %; Value: 5.2; Range: 0.0-5.0; Abnormal: Above high normal; Units: %; Status: F Test: EOS %; Value: 1.2; Range: 0.0-3.0; Units: %; Status: F Test: BASO %; Value: 0.7; Range: 0.0-1.0; Units: %; Status: F Test: LARGE UNSTAINED CELL %; Value: 1.7; Range: 0.0-4.0; Units: %; Status: F Test: NEUTROPHILS #; Value: 7.0; Range: 1.8-7.7; Units: K/mm3; Status: F Test: LYMPH #; Value: 2.7; Range: 1.5-4.5; Units: K/mm3; Status: F Test: MONO #; Value: 0.6; Range: 0.0-0.8; Units: K/mm3; Status: F Test: EOS #; Value: 0.1; Range: 0.0-0.50; Units: K/mm3; Status: F Test: BASO #; Value: 0.1; Range: 0.0-0.2; Units: K/mm3; Status: F Test: LARGE UNSTAINED CELL #; Value: 0.2; Range: 0.0-0.4; Units: K/mm3; Status: F Lab Order: Cardiac Injury Profile; [facility] 04/03/16 09:35 Test: CPK CREATINE PHOSPHOKINASE; Value: 92; Range: 26-192; Units: U/L; Status: F Test: CK-MB VALUE MASS; Value: 1.0; Range: 0.0-3.6; Units: NG/ML; Status: F Test: MB/CK RELATIVE INDEX; Value: 1.08; Range: < OR =4; Status: F Test Note: ; DIAGNOSIS CRITERIA MMB ng/ml Relative Index (RI) NON-AMI < or = 5 N/A HART ZONE > 5 < or = 4 AMI > 5 > 4 Lab Order: Troponin; [facility]M 04/03/16 09:35 Test: TROPONIN I; Value: < 0.02; Range: < 0.10; Units: NG/ML; Status: F Test Note: ; Troponin I Reference Interval for [employer] LOCI: 99th Percentile= 0.00-0.045 ng/ml Risk Stratification: <= 0.10 ng/ml Decreased Risk for Adverse Clinical Events. 0.10-1.50 ng/ml Increased Risk for Adverse Clinical Events. Evaluation of additional criterion and/or repeat testing in 2-6 hours is suggested to rule out myocardial damage. >= 1.50 ng/ml Indicative of Myocardial Injury. Lab Order: TSH with Free T4; [facility]' 04/03/16 09:35 Test: THYROID STIMULATING HORMONE; Value: 1.830; Range: 0.358-3.740; Units: uIU/ML; Status: F Test: FREE T4; Value: 1.05; Range: 0.76-1.46; Units: NG/DL; Status: F Lab Order: A1C; [facility] 04/03/16 09:35 Test: HEMOGLOBIN A1c; Value: 5.8; Range: 4.5-6.2; Units: %; Status: F Test: ESTIMATED AVERAGE GLUCOSE; Value: 120; Range: 60-110; Abnormal: Above high normal; Units: MG/DL; Status: F Lab Order: CARDIAC MARKER PANEL; [facility] 04/03/16 12:52 Test: CPK CREATINE PHOSPHOKINASE; Value: 77; Range: 26-192; Units: U/L; Status: F Test: CK-MB VALUE MASS; Value: 1.0; Range: 0.0-3.6; Units: NG/ML; Status: F Test: MB/CK RELATIVE INDEX; Value: 1.29; Range: < OR =4; Status: F Test: TROPONIN I; Value: < 0.02; Range: < 0.10; Units: NG/ML; Status: F Test Note: ; DIAGNOSIS CRITERIA MMB ng/ml Relative Index (RI) NON-AMI < or = 5 N/A HART ZONE > 5 < or = 4 AMI > 5 > 4 Radiology Order: EKG-ADULT Test: EKG-ADULT REASON FOR EXAMINATION: Chest Pain; Stationary ECG Study; [facility] - ED; ; Test Date: 2016-04-03; Pat Name: VICENTE CHAMORRO Department:; Room: -; Gender: 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 Mild fibrotic changes are seen bilaterally. The; heart is normal in size. 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 pc 14:42 Discharge Assessment: Patient awake and alert. obeys commands, Oriented to person, ead place and time. patient administered narcotics - no. The following High Risk Discharge criteria are identified: None. Discharged to home ambulatory, with friend. Condition: improved. Discharge instructions given to patient, Instructed on discharge instructions, follow up and referral plans. medication usage, Demonstrated understanding of instructions, medications, Pt was receptive of discharge instructions/ teaching. Prescriptions given X 1. No special radiology studies were completed. Property sent home with patient. 14:43 Patient left the ED. eagurinder Signatures: Dispatcher [employer] EDTyrel Farris MD MD pc Ganter, LoriLee, Reg Reg lg Alton Granados, Reg Reg kf3 Sandhya Pal, RN RN Soraya Javed PCA PCA elp Dunaway, EmilyRN RN Rasheed Jenkins rn1 Chart Complete MTDD
--- NOTE | 2016-04-05 15:44 | EDDOCDS ---
Physician Documentation [facility] Name: Althea Cedillo Age: 40 yrs Sex: Female : 1975 Arrival Date: 04/03/2016 Time: 09:21 Bed 12 Private MD: KANWAL FIORE Disposition: 04/03 13:39 Critical Care: Critical care not applicable. pc Disposition: 04/03/16 14:28 Discharged to Home/Self Care. Impression: Palpitations, Chest pain, unspecified. - Condition is Stable. - Discharge Instructions: Nonspecific Chest Pain, Palpitations. - Prescriptions for Aspirin 81 mg Oral - take 1 tablet by ORAL route once daily; 30 tablet. - Medication Reconciliation, Local Pharmacy Hours form. - Follow up: Angel Herr; When: April 14, at 1:00pm; Reason: Further diagnostic work-up, Recheck today's complaints, To establish care. - Problem is new. - Symptoms have improved. HPI: 10:22 This 40 yrs old Female presents to ER via Walkin/Carried/Asstd with pc complaints of Palpitations. 10:22 The history is obtained from the patient. She was at work, doing her usual chores, pc lifting trays, when she suddenly "felt weird. My heart was beating funny and I thought I was going to pass out. I had to sit down. I felt dizzy and then my chest felt heavy", pointing to her midsternum. She denies any headache, visual changes, nausea ore vomiting. She presents stating her jaws are aching and are sore just to touch or chew. She has no palpitations currently but has upper chest "aching". At their worst, the symptoms were a 8 out of 10. In the emergency department, the symptoms are a 3 out of 10. There were no modifying factors noted. The patient has not experienced similar symptoms in the past. The patient has not recently seen a physician. Historical: - Allergies: SULFA (SULFONAMIDES) (Hives); - Home Meds: 1. Januvia 100 mg oral tab 1 tab once daily 2. ranitidine HCl 300 mg Oral cap 1 cap once daily 3. Mirena 20 mcg/24 hr (5 years) intrauterine IUD - PMHx: Diabetes - NIDDM: controlled; GERD; - PSHx: none; - The history from nurses notes was reviewed: and I agree with what is documented. - Social history: Smoking status: Patient uses tobacco products, current every day smoker. No barriers to communication noted, The patient speaks fluent Ukrainian. - Family history: Not pertinent. - : The pt / caregiver states he / she is not on anticoagulants. Home medication list is obtained from the patient. - Hospitalizations: : No recent hospitalization is reported. - Exposure Risk Screening:: None identified. - Immunization history:: All immunizations up-to-date. - Social history:: the patient smokes cigarettes 1ppd the patient drinks alcohol. 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 pc Exam: 10:22 General Appearance: no acute distress, alert, anxious. pc 10:22 EENT: normal eye inspection, ears, nose and throat normal, pharynx normal, mucous membranes moist 10:22 Neck: The exam reveals no acute abnormalities. ROM is normal and painless. No nuchal rigidity is noted.. 10:22 Respiratory: no respiratory distress, normal breath sounds, chest non-tender. 10:22 CVS: regular pulse rate, regular rhythm, normal S1 and S2, no murmurs, strong peripheral pulses, normal capillary refill. 10:22 Abdomen: soft, non-tender, no organomegaly, normal bowel sounds. 10:22 Back: normal inspection. 10:22 : bladder is non-distended, non-tender. 10:22 Skin: skin color is normal, warm, dry, no rashes, no lesions. 10:22 Extremities: The extremities have a grossly normal appearance, are non-tender, without acute ROM abnormalities, no pedal edema. 10:22 Neuro: oriented x 3, cranial nerves normal as tested, no motor deficits, no sensory deficits, normal gait. 10:22 Psych: normal mood. Vital Signs: 09:23 BP 144 / 75; Pulse 92; Resp 18; Temp 97.7(O); Pulse Ox 100% on R/A; Weight 78.93 kg / elp 174.01 lbs (R); Height 5 ft. 8 in. (172.72 cm) (R); Pain 8/10; 10:21 BP 112 / 68 (auto/); ead 10:23 Pulse 72 MON; Resp 16; Pulse Ox 97% on R/A; Pain 3/10; ead 10:30 BP 106 / 61; Pain 0/10; ead 10:58 BP 124 / 65 (auto/); ead 10:58 Pulse 66 MON; Pulse Ox 98% ; ead 11:13 BP 109 / 55 (auto/); ead 11:15 Pulse 62 MON; Pulse Ox 97% ; ead 11:28 BP 109 / 62 (auto/); ead 11:28 Pulse 62 MON; Pulse Ox 96% ; ead 11:43 BP 102 / 62 (auto/); ead 11:44 Pulse 70 MON; Pulse Ox 95% ; ead 11:58 BP 97 / 58 (auto/); ead 12:10 Pulse 72 MON; Pulse Ox 95% ; ead 12:13 BP 97 / 55 (auto/); ead 12:13 Pulse 70 MON; Pulse Ox 94% ; ead 12:28 BP 101 / 55 (auto/); ead 12:28 Pulse 68 MON; Pulse Ox 95% ; ead 12:43 BP 95 / 52 (auto/); ead 12:43 Pulse 70 MON; Pulse Ox 96% ; ead 14:36 BP 125 / 66 (auto/); ead 14:36 Pulse 84 MON; Resp 16; Temp 97.7(O); Pulse Ox 97% on R/A; Pain 0/10; ead 09:23 Body Mass Index 26.46 (78.93 kg, 172.72 cm) elp MDM: 09:27 ECG WITH READING ER PHYS+CARDIAG ordered. EDMS 09:47 Test interpretation: EKG. pc 10:09 Aspirin Chewable Tablet 324 mg PO once ordered. pc 10:09 Clay Stain Mixer/Pulse Ox/q 30 min VS ordered. pc 10:09 IV Saline Lock ordered. pc 10:09 Rhythm Strip to chart ordered. pc 10:09 Nitrostat 0.4 mg Sublingual once ordered. pc 10:10 Basic Metabolic Profile Ordered. EDMS 10:10 CBC with Diff Ordered. EDMS 10:10 Cardiac Injury Profile Ordered. EDMS 10:10 Troponin Ordered. EDMS 10:10 TSH with Free T4 Ordered. EDMS 10:10 A1C Ordered. EDMS 10:11 portable chest Ordered. EDMS 10:13 Financial registration complete. lg 10:17 [facility] Payment Agreement was scanned into Yodlee and attached to record. lg 10:22 Differential Diagnosis: palpitations, central chest pressure r/o ACS. Plan: labs, EKG, pc imaging, meds. Data reviewed: old medical records, vital signs, nurses notes, EKG(s). 10:49 Basic Metabolic Profile Reviewed. pc 10:49 CBC with Diff Reviewed. pc 10:49 Cardiac Injury Profile Reviewed. pc 10:49 Troponin Reviewed. pc 10:49 TSH with Free T4 Reviewed. pc 10:56 A1C Reviewed. pc 10:57 Redraw CIP &Troponin (put time in details section) ordered. pc 10:57 Repeat EKG (put time details section) ordered. pc 11:04 Redraw CIP &Troponin (put time in details section) complete. lbd 11:04 Repeat EKG (put time details section) complete. lbd 11:07 CARDIAC MARKER PANEL Ordered. EDMS 11:08 ECG WITH READING ER PHYS ordered. EDMS 13:32 CARDIAC MARKER PANEL Reviewed. pc 13:32 portable chest Reviewed. pc 13:39 Test interpretation: EKG. pc 13:39 Test interpretation: LAB - all labs as ordered have been reviewed, interpreted and pc considered in the overall management of the clinical presentation; X-RAY - interpreted by Radiologist and personally reviewed, 1 view chest no acute disease. The patient has been re-examined and re-evaluated. The patient's symptoms have mildly improved after treatment. Physician consultation: Dr. Angel Herr was contacted at 13:40, regarding patient's condition, and will see patient in ED. Disposition: The historical points, examination findings, and any diagnostic results supporting the provided diagnosis, were discussed with the patient or legal guardian. The need for outpatient follow up with the provider listed on their discharge instructions was discussed. They were encouraged to return to [facility], or the nearest ED, if symptoms worsen/persist, or for any other questions/concerns. 04/04 16:40 ECG/EKG was scanned into Yodlee and attached to record. kf3 EC/03 09:47 Rate is 72 beats/min. Rhythm is regular, Normal Sinus Rhythm. QRS [place] is Normal. PA pc interval is normal. QRS interval is normal. QT interval is normal. No Q waves. T waves are Normal. No ST changes noted. Clinical impression: Normal Sinus Rhythm. 13:39 Rate is 61 beats/min. Rhythm is regular, Normal Sinus Rhythm. QRS [place] is Normal. PA pc interval is normal. QRS interval is normal. QT interval is normal. No Q waves. T waves are Normal. No ST changes noted. Clinical impression: Normal Sinus Rhythm. Administered Medications: 10:24 Drug: Aspirin 324 mg [aspirin 81 mg chewable tablet (4 tabs)] Route: PO; ead 10:24 Drug: Nitrostat 0.4 mg [Nitrostat 0.4 mg sublingual tablet (1 tabs)] Route: Sublingual; ead 10:30 Follow up: BP 106 / 61; Pain 0/10 Adult; Response: No Adverse Reaction; Pain is resolvedead Signatures: Dispatcher [employer] EDMS Tyrel Peacock MD MD pc Daly, Linda, Youth Leader Unit lbd Sebas James, Reg Reg lg Alton Granados, Reg Reg kf3 Sandhya Pal, Lore Elkins RNRN BRENDA auguste The chart was reviewed and I authenticate all verbal orders and agree with the evaluation and treatment provided.Attachments: 10:17 [facility] Payment Agreement lg 04/04 16:40 ECG/EKG kf3 Chart Complete MTDD
== END 2016-04-03 14:43 | disposition home or self-care (01) ==
LOC: M ED 09:21
DX: R00.2 Palpitations (principal); R07.9 Chest pain, unspecified; E11.9 Type 2 diabetes mellitus without complications; K21.9 Gastro-esophageal reflux disease without esophagitis; Z79.84 Long term (current) use of oral hypoglycemic drugs; Z79.899 Other long term (current) drug therapy; Z97.5 Presence of (intrauterine) contraceptive device; Z88.2 Allergy status to sulfonamides

== ENCOUNTER → 2016-04-22 | Outpatient (CLI) | payer OTHER | LOC: M WUC 08:33 | PROVIDERS: ATTEND Internal Medicine Cardiovascular Disease | DX: R07.2 Precordial pain (principal) ==

== ENCOUNTER 2016-08-19 18:07 | Emergency (ER) | payer OTHER ==
[~2016-08-19] VITALS: Ht 172.7 cm; Wt 91.4 kg
[2016-08-19] MEDS ORDERED: JANU100T PO (18:21)
[2016-08-19] MEDS ORDERED: ASPI1TAB PO (18:21)
[2016-08-19] MEDS ORDERED: ZANT300T PO (18:21)
[2016-08-19] MEDS ORDERED: MORPHINE 4 MG/ML 1ML SYRINGE IV PRN (18:45)
[2016-08-19] MEDS ORDERED: NS 1,000 ML IV ONE (18:45)
[2016-08-19 20:08] LABS: BASO # 0.1 K/mm3 (0.0-0.2); BASO % 0.7 % (0.0-1.0); EOS # 0.3 K/mm3 (0.0-0.50); EOS % 2.1 % (0.0-3.0); LARGE UNSTAINED CELL # 0.2 K/mm3 (0.0-0.4); LARGE UNSTAINED CELL % 1.2 % (0.0-4.0); LYMPH # 2.8 K/mm3 (1.5-4.5); LYMPH % 21.8 % (24.0-44.0); MEAN CORPUSCULAR HEMOGLOBIN 30.1 pg (27.0-33.0); MEAN CORPUSCULAR HGB CONC 34.3 g/dl (32.0-36.5); MONO # 0.7 K/mm3 (0.0-0.8); NEUTROPHILS # 8.4 K/mm3 (1.8-7.7); NEUTROPHILS % 68.2 % (36.0-66.0); PLATELET COUNT, AUTOMATED 329 k/mm3 (150-450); WHITE BLOOD COUNT 12.3 K/mm3 (4.0-10.0)
[2016-08-19 20:17] LABS: INR 0.85
[2016-08-19 20:36] LABS: ALBUMIN 3.9 GM/DL (3.2-5.2); ALBUMIN/GLOBULIN RATIO 0.98 (1.00-1.93); ALKALINE PHOSPHATASE 152 U/L (45-117); ALT/SGPT 27 U/L (12-78); ANION GAP 7 MEQ/L (8-16); AST/SGOT 15 U/L (15-37); BILIRUBIN,DIRECT < 0.1 MG/DL (0.0-0.2); BILIRUBIN,TOTAL 0.3 MG/DL (0.2-1.0); BLOOD UREA NITROGEN 16 MG/DL (7-18); CALCIUM LEVEL 9.2 MG/DL (8.5-10.1); CARBON DIOXIDE LEVEL 26 MEQ/L (21-32); CHLORIDE LEVEL 107 MEQ/L (98-107); GLOMERULAR FILTRATION RATE > 60.0 (>58); GLUCOSE, FASTING 97 MG/DL (70-105); POTASSIUM SERUM 3.8 MEQ/L (3.5-5.1); SODIUM LEVEL 140 MEQ/L (136-145); TOTAL PROTEIN 7.9 GM/DL (6.4-8.2)
[2016-08-19] MEDS ORDERED: ISOVUE-370 76% 100ML VIAL (Q9967) As Ordered ONE (20:38)
--- NOTE | 2016-08-19 21:50 | REPUSA ---
CLINICAL HISTORY: Neck pain. Trauma. TECHNIQUE: Multiple axial images were obtained through the cervical spine. Images were also reconstru cted in coronal and sagittal planes. The study was performed without IV contrast. COMMENTS: There is no fracture or spondylolisthesis visualized. The paraspinal soft tissues are unremarkable. T here are no lytic or blastic lesions. Straightening of cervical lordosis is seen, suggesting muscular spasm. There is evidence of minimal m ultilevel disk disease, demonstrated by minimal osteophytosis and endplate sclerosis. No significant disk herniation is noted at any level. Canal and foramina remain patent. IMPRESSION: 1. No fracture or spondylolisthesis. 2. Straightening of cervical lordosis is seen, suggesting muscular spasm. 3. Minimal multilevel spondylosis. Thank you for your kind referral of this patient.
--- NOTE | 2016-08-19 22:00 | REPUSA ---
CT of the lumbar spine without contrast Clinical history: Pain. Technique: Multiple axial CT images were obtained through the lumbar spine without administration of contrast. Coronal and sagittal 3-D reconstructed images were also obtained. Findings: The lumbar vertebral bodies are in satisfactory positioning and alignment. No fractures or dislocatio ns are demonstrated. Intervertebral disc spaces are well-maintained. There is no evidence of facet alejandro bluxation. The neural foramen appear grossly patent. The spinal canal demonstrates normal caliber and contour without evidence of spinal stenosis. The surrounding soft tissues are within normal limits. Impression: Unremarkable CT examination of the lumbar spine.
--- NOTE | 2016-08-19 22:10 | REPUSA ---
CLINICAL HISTORY: Trauma. TECHNIQUE: Multiple axial CT images were obtained through chest with IV contrast material. MPR schroeder l and sagittal sequences were obtained. COMMENTS: Note is made of scattered centrilobular emphysema with upper lobe predominance. There is no evidence of pleural or parenchymal mass. There are no pleural effusions. There is no evid ence of hilar or mediastinal lymphadenopathy. The heart and great vessels are within normal limits. The visualized portions of the liver are of uniform attenuation without mass or defect. There is no i ntra or extrahepatic biliary ductal dilatation. The spleen is unremarkable. The visualized pancreas i s of normal contour and attenuation characteristics. There is no evidence of adrenal mass. The visual ized portions of the kidneys present no abnormalities. The bony structures are free of lytic or blastic lesions. No fracture is seen. No evidence for abnormal enhancement. IMPRESSION: Emphysema. No evidence of acute thoracic pathology. Thank you for your kind referral of this patient.
--- NOTE | 2016-08-19 22:10 | REPUSA ---
CT of the thoracic spine without contrast Clinical history: Pain. Technique: Multiple axial CT images were obtained through the thoracic spine without administration o f contrast. Coronal and sagittal 3-D reconstructed images were also obtained. Findings: The vertebral bodies are in satisfactory positioning and alignment. No fractures or dislocations are demonstrated. Intervertebral disc spaces are well-maintained. There is no evidence of facet subluxati on. The neural foramen appear grossly patent. The spinal canal demonstrates normal caliber and contou r without evidence of spinal stenosis. The surrounding soft tissues are within normal limits. Impression: No acute traumatic injury.
--- NOTE | 2016-08-19 22:10 | REPUSA ---
CT of the abdomen and pelvis with contrast Clinical statement: trauma. Technique: Multiple axial CT images were obtained from the base of the lungs through the floor of the pelvis utilizing 5 mm axial slices after administration of nonionic intravenous contrast. Coronal an d sagittal reconstructions were also obtained. Comparison: 12/20/2014. Findings: Chest: The visualized lung bases are clear. Abdomen: The liver, spleen, pancreas, kidneys, gallbladder, and adrenal glands are unremarkable. The aorta is within normal limits. There is no evidence of abdominal lymphadenopathy or ascites. Pelvis: The bowel is unremarkable, with no obstructive or inflammatory changes. The appendix is juan francisco l. The urinary bladder is within normal limits. The IUD is in place within the uterus. There is a com plex hyperdense lesion in the left ovary measuring 1.9 x 1.1 cm. There is no evidence of pelvic lymph adenopathy or ascites. Bones: There are no suspicious osseous abnormalities seen. Impression: 1. Hemorrhagic left ovarian cyst. 2. No obstructive or inflammatory bowel changes.
[2016-08-19 22:32] VITALS: O2SAT 96
[2016-08-19 23:17] VITALS: BP 126/94
--- NOTE | 2016-08-20 00:49 | REP ---
Clinical: Trauma . Technique: Internal rotation, external rotation, and Y view. Findings: No acute fracture or dislocation. The acromioclavicular and glenohumeral joints are intact. No periarticular calcifications or degenerative changes are appreciated. Sub acromial space is normal. Surrounding soft tissues are unremarkable. Impression: Normal left shoulder radiographs. Signed by Biju Arellano MD 08/20/2016 12:41 A
== END 2016-08-19 23:19 | disposition home or self-care (01) ==
LOC: M ED 19:38
DX: S16.1XXA Strain of muscle, fascia and tendon at neck level, initial encounter (principal); S40.012A Contusion of left shoulder, initial encounter; V43.52XA Car driver injured in collision with other type car in traffic accident, initial encounter; Y92.410 Unspecified street and highway as the place of occurrence of the external cause; Y93.9 Activity, unspecified; Y99.8 Other external cause status; N83.292 Other ovarian cyst, left side; J43.9 Emphysema, unspecified; E11.9 Type 2 diabetes mellitus without complications; F17.200 Nicotine dependence, unspecified, uncomplicated; Z79.82 Long term (current) use of aspirin; Z79.899 Other long term (current) drug therapy; Z88.2 Allergy status to sulfonamides
CPT/HCPCS: 36415; 70450; 71260; 72125; 72128; 72131; 73030; 74177; 80048; 80076; 81001; 82550; 82553; 85025; 85610; 85730; 86850; 86900; 86901; 93041; 94760; 96361; 96374; 99285; Q9967

== ENCOUNTER → 2016-11-23 | Outpatient (CLI) | payer OTHER ==
[~2016-11-23] MED LIST: ASPI1TAB PO; JANU100T PO; ZANT300T PO
[2016-11-23 17:38] LABS: ALBUMIN 3.5 GM/DL (3.2-5.2); ALBUMIN/GLOBULIN RATIO 0.97 (1.00-1.93); ALKALINE PHOSPHATASE 141 U/L (45-117); ALT/SGPT 25 U/L (12-78); ANION GAP 9 MEQ/L (8-16); AST/SGOT 13 U/L (15-37); BILIRUBIN,TOTAL 0.3 MG/DL (0.2-1.0); BLOOD UREA NITROGEN 17 MG/DL (7-18); CALCIUM LEVEL 8.6 MG/DL (8.5-10.1); CARBON DIOXIDE LEVEL 22 MEQ/L (21-32); CHLORIDE LEVEL 107 MEQ/L (98-107); CHOLESTEROL LEVEL 117 MG/DL (<200); CREATININE FOR GFR 0.95 MG/DL (0.55-1.02); GLOMERULAR FILTRATION RATE > 60.0 (>58); GLUCOSE, FASTING 81 MG/DL (70-105); SODIUM LEVEL 138 MEQ/L (136-145); TOTAL PROTEIN 7.1 GM/DL (6.4-8.2); TRIGLYCERIDES LEVEL 136 MG/DL (<150)
== END ==
LOC: M WUC 13:39
PROVIDERS: ATTEND Nurse Practitioner
DX: E11.9 Type 2 diabetes mellitus without complications (principal)

== ENCOUNTER → 2016-12-08 | Outpatient (CLI) | payer OTHER ==
--- NOTE | 2016-12-08 14:04 | REPMRS ---
Patient History The patient states she has not had a clinical breast exam in over a year. Family history of colorectal cancer in maternal aunt under age 50. Benign stereotactic core biopsy of the right breast, October 2014. 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 Digital Mammo Screening Bilat: December 08, 2016 - Exam #: [id number] Bilateral CC and MLO view(s) were taken. Technologist: Angle Posey, Technologist Prior study comparison: December 03, 2015, left breast digital mammo diagnostic unilateral performed at [facility]. November 21, 2015, bilateral digital mammo screening bilat performed at [facility]. October 16, 2014, digital mammo diagnostic bilateral performed at [facility]. FINDINGS: There are scattered fibroglandular densities. There is a needle biopsy marker clip in the right breast. There is a moderate amount of residual fibroglandular tissue which is fairly symmetric. There is no interval development of dominant mass, architectural distortion, or clustered microcalcification typical of malignancy. There has been no change in the appearance of the mammogram from the prior studies. ASSESSMENT: BI-RADS/ACR category 2 mammogram. Benign finding(s). Recommendation Routine screening mammogram of both breasts in 1 year (for women over age 40). This mammogram was interpreted with the aid of an FDA-approved computer-aided dectection system. Electronically Signed By: Kermit Bee MD 12/08/16 8221
== END ==
LOC: M RAD 13:35
PROVIDERS: ATTEND Nurse Practitioner
DX: Z12.31 Encounter for screening mammogram for malignant neoplasm of breast (principal)

== ENCOUNTER → 2017-03-31 | Outpatient (CLI) | payer OTHER ==
[2017-03-31 17:55] LABS: ALBUMIN 3.7 GM/DL (3.2-5.2); ALBUMIN/GLOBULIN RATIO 1.06 (1.00-1.93); ALKALINE PHOSPHATASE 157 U/L (45-117); ALT/SGPT 28 U/L (12-78); ANION GAP 8 MEQ/L (8-16); AST/SGOT 15 U/L (7-37); BILIRUBIN,TOTAL 0.3 MG/DL (0.2-1.0); BLOOD UREA NITROGEN 15 MG/DL (7-18); CALCIUM LEVEL 8.8 MG/DL (8.5-10.1); CARBON DIOXIDE LEVEL 26 MEQ/L (21-32); CHLORIDE LEVEL 105 MEQ/L (98-107); CHOLESTEROL LEVEL 109 MG/DL (<200); CHOLESTEROL RISK RATIO 3.406 (<5); CREATININE FOR GFR 0.94 MG/DL (0.55-1.30); FREE T4 1.07 NG/DL (0.76-1.46); GLOMERULAR FILTRATION RATE > 60.0 (>58); GLUCOSE, FASTING 81 MG/DL (70-100); HDL CHOLESTEROL 32 MG/DL (>40); NON-HDL-C 77 MG/DL; POTASSIUM SERUM 4.6 MEQ/L (3.5-5.1); SODIUM LEVEL 139 MEQ/L (136-145); TOTAL PROTEIN 7.2 GM/DL (6.4-8.2); TRIGLYCERIDES LEVEL 205 MG/DL (<150)
[2017-03-31 17:57] LABS: BASO # 0.1 10^3/uL (0.0-0.2); BASO % 0.9 % (0.0-1.0); EOS # 0.2 10^3/uL (0.0-0.50); EOS % 1.7 % (0.0-3.0); HEMATOCRIT 42.5 % (36.0-47.0); IMMATURE GRANULOCYTE % 0.4 % (0-0); LYMPH # 3.6 10^3/uL (1.5-4.5); LYMPH % 34.6 % (24.0-44.0); MEAN CORPUSCULAR HEMOGLOBIN 29.3 pg (27.0-33.0); MEAN CORPUSCULAR HGB CONC 32.9 g/dl (32.0-36.5); MEAN CORPUSCULAR VOLUME 88.9 fl (80.0-96.0); MONO # 0.8 10^3/uL (0.0-0.8); MONO % 7.6 % (0.0-5.0); NEUTROPHILS # 5.6 10^3/uL (1.8-7.7); NEUTROPHILS % 54.8 % (36.0-66.0); PLATELET COUNT, AUTOMATED 340 10^3/uL (150-450); RED BLOOD COUNT 4.78 10^6/uL (4.00-5.40); RED CELL DISTRIBUTION WIDTH 13.2 % (11.5-14.5); WHITE BLOOD COUNT 10.3 10^3/uL (4.0-10.0)
[2017-03-31 18:05] LABS: ESTIMATED AVERAGE GLUCOSE 128 MG/DL (60-110); HEMOGLOBIN A1c 6.1 %
[2017-03-31 18:43] LABS: MALB URINE SIEMENS 5.8 MG/L; MAU/CREAT RATIO 4.4 MCG/MG (0.0-30.0)
== END ==
LOC: M WUC 13:48
DX: E11.9 Type 2 diabetes mellitus without complications (principal); F17.200 Nicotine dependence, unspecified, uncomplicated
CPT/HCPCS: 84443

== ENCOUNTER → 2017-11-01 | Outpatient (CLI) | payer OTHER ==
[2017-11-01 12:41] LABS: MALB URINE SIEMENS 7.9 MG/L; MAU/CREAT RATIO 6.5 MCG/MG (0.0-30.0)
[2017-11-01 15:10] LABS: ESTIMATED AVERAGE GLUCOSE 143 MG/DL (60-110); HEMOGLOBIN A1c 6.6 %
== END ==
LOC: M WUC 08:52
DX: E11.9 Type 2 diabetes mellitus without complications (principal)
CPT/HCPCS: 83036

== ENCOUNTER → 2017-11-19 | Outpatient (REF) | payer OTHER | LOC: M SFHCPLAZ 15:54 | DX: D23.5 Other benign neoplasm of skin of trunk (principal) ==

== ENCOUNTER → 2017-11-27 | Outpatient (REF) | payer OTHER ==
[2017-11-27 22:30] LABS: APPEARANCE, URINE HAZY (CLEAR); BACTERIA, URINE AUTO NEGATIVE (NEGATIVE); BILIRUBIN, URINE AUTO NEGATIVE (NEGATIVE); BLOOD, URINE BLOOD NEGATIVE (NEGATIVE); COLOR, URINE YELLOW (YELLOW); GLUCOSE, URINE (UA) AUTO NEGATIVE (NEGATIVE); KETONE, URINE AUTO NEGATIVE (NEGATIVE); LEUKOCYTE ESTERASE, URINE AUTO NEGATIVE (NEGATIVE); MUCUS, URINE SMALL (NEGATIVE); NITRITE, URINE AUTO NEGATIVE (NEGATIVE); PROTEIN, URINE AUTO NEGATIVE (NEGATIVE); RBC, URINE AUTO 2 /HPF (0-3); SPECIFIC GRAVITY URINE AUTO 1.025 (1.002-1.035); SQUAMOUS EPITHELIAL CELL UR AU 2 /HPF (0-6); WBC, URINE AUTO 1 /HPF (0-3)
== END ==
LOC: M LAB REF 12:30
DX: N39.0 Urinary tract infection, site not specified (principal)

== ENCOUNTER → 2017-11-28 | Outpatient (REF) | payer OTHER ==
[2017-11-28 19:46] LABS: BACTERIA, URINE AUTO 1+ (NEGATIVE); MUCUS, URINE SMALL (NEGATIVE); RBC, URINE AUTO 0 /HPF (0-3); SQUAMOUS EPITHELIAL CELL UR AU 2 /HPF (0-6); WBC, URINE AUTO 0 /HPF (0-3); YEAST LIKE CELL URINE AUTO SMALL
== END ==
LOC: M LAB REF 11:24
DX: M54.9 Dorsalgia, unspecified (principal)

== ENCOUNTER → 2017-11-29 | Outpatient (CLI) | payer OTHER | LOC: M RAD 13:59 | DX: M54.5 Low back pain (principal) | CPT/HCPCS: 76775 ==

== ENCOUNTER → 2017-12-02 | Outpatient (CLI) | payer OTHER | LOC: M WUC 10:55 | DX: M51.36 Other intervertebral disc degeneration, lumbar region (principal) | CPT/HCPCS: 72110 ==

== ENCOUNTER → 2018-05-16 | Outpatient (CLI) | payer OTHER ==
[~2018-05-16] MED LIST changes: -ZANT300T PO; +ZANT300T9 PO
[2018-05-16 17:20] LABS: BASO # 0.1 10^3/uL (0.0-0.2); BASO % 0.9 % (0.0-1.0); EOS # 0.2 10^3/uL (0.0-0.50); EOS % 1.7 % (0.0-3.0); HEMATOCRIT 43.2 % (36.0-47.0); HEMOGLOBIN 14.2 g/dl (12.0-15.5); LYMPH % 29.2 % (24.0-44.0); MEAN CORPUSCULAR HEMOGLOBIN 29.8 pg (27.0-33.0); MEAN CORPUSCULAR HGB CONC 32.9 g/dl (32.0-36.5); MEAN CORPUSCULAR VOLUME 90.6 fl (80.0-96.0); MONO % 9.5 % (0.0-5.0); NEUTROPHILS % 58.3 % (36.0-66.0); PLATELET COUNT, AUTOMATED 303 10^3/uL (150-450); RED BLOOD COUNT 4.77 10^6/uL (4.00-5.40); WHITE BLOOD COUNT 10.3 10^3/uL (4.0-10.0)
[2018-05-16 17:59] LABS: ALBUMIN 3.5 GM/DL (3.2-5.2); ALT/SGPT 29 U/L (12-78); BILIRUBIN,TOTAL 0.3 MG/DL (0.2-1.0); BLOOD UREA NITROGEN 11 MG/DL (7-18); CALCIUM LEVEL 8.6 MG/DL (8.5-10.1); CARBON DIOXIDE LEVEL 26 MEQ/L (21-32); CHLORIDE LEVEL 108 MEQ/L (98-107); CHOLESTEROL LEVEL 130 MG/DL (<200); CHOLESTEROL RISK RATIO 3.823 (<5); CREATININE FOR GFR 0.76 MG/DL (0.55-1.30); FREE T4 1.04 NG/DL (0.76-1.46); GLOMERULAR FILTRATION RATE > 60.0 (>58); GLUCOSE, FASTING 111 MG/DL (70-100); HDL CHOLESTEROL 34 MG/DL (>40); LDL CHOLESTEROL 62 MG/DL (<100); NON-HDL-C 96 MG/DL; POTASSIUM SERUM 4.8 MEQ/L (3.5-5.1); SODIUM LEVEL 138 MEQ/L (136-145); TOTAL PROTEIN 6.4 GM/DL (6.4-8.2); TRIGLYCERIDES LEVEL 170 MG/DL (<150)
[2018-05-16 19:03] LABS: MALB URINE SIEMENS 6.6 MG/L; MAU/CREAT RATIO 5.6 MCG/MG (0.0-30.0)
== END ==
LOC: M WUC 14:04
PROVIDERS: ATTEND Nurse Practitioner Family
DX: E11.9 Type 2 diabetes mellitus without complications (principal)

== ENCOUNTER → 2018-11-22 | Outpatient (CLI) | payer OTHER ==
[~2018-11-22] MED LIST changes: -ASPI1TAB PO; +ASPI81TA26 PO; +LIPI20TA PO; +MAXA10TA14 PO; +TOPA1TAB PO
[2018-11-22 17:14] LABS: HEMOGLOBIN A1c 6.5 %
[2018-11-22 17:27] LABS: BLOOD UREA NITROGEN 14 MG/DL (7-18); CARBON DIOXIDE LEVEL 23 MEQ/L (21-32); CHLORIDE LEVEL 110 MEQ/L (98-107); CREATININE FOR GFR 0.87 MG/DL (0.55-1.30); GLOMERULAR FILTRATION RATE > 60.0 (>58); GLUCOSE, FASTING 111 MG/DL (70-100); POTASSIUM SERUM 4.4 MEQ/L (3.5-5.1); SODIUM LEVEL 141 MEQ/L (136-145)
[2018-11-22 17:28] LABS: ALBUMIN 3.5 GM/DL (3.2-5.2); ALT/SGPT 22 U/L (12-78); BILIRUBIN,TOTAL 0.3 MG/DL (0.2-1.0); CALCIUM LEVEL 8.8 MG/DL (8.5-10.1); CHOLESTEROL LEVEL 116 MG/DL (<200); CHOLESTEROL RISK RATIO 3.052 (<5); HDL CHOLESTEROL 38 MG/DL (>40); LDL CHOLESTEROL 50 MG/DL (<100); NON-HDL-C 78 MG/DL; TOTAL PROTEIN 6.5 GM/DL (6.4-8.2); TRIGLYCERIDES LEVEL 141 MG/DL (<150)
== END ==
LOC: M WUC 14:00
PROVIDERS: ATTEND Nurse Practitioner Family
DX: E11.9 Type 2 diabetes mellitus without complications (principal); K21.0 Gastro-esophageal reflux disease with esophagitis; F17.200 Nicotine dependence, unspecified, uncomplicated; E78.5 Hyperlipidemia, unspecified

== ENCOUNTER 2018-11-30 03:54 | Emergency (ER) | payer OTHER ==
[~2018-11-30] VITALS: Ht 172.7 cm; Wt 85.0 kg
[~2018-11-30 03:54] MED LIST changes: -LIPI20TA PO; -MAXA10TA14 PO; -TOPA1TAB PO
[2018-11-30] MEDS ORDERED: TOPA1TAB PO (04:05)
[2018-11-30] MEDS ORDERED: MAXA10TA14 PO (04:05)
[2018-11-30] MEDS ORDERED: LIPI20TA PO (04:05)
[2018-11-30] MEDS ORDERED: IBUPROFEN 600 MG TAB PO ONE (05:15)
--- NOTE | 2018-11-30 05:35 | REPVR ---
PROCEDURE INFORMATION: Exam: XR Right Wrist Exam date and time: 11/30/2018 5:05 AM Clinical history: 43 years old, female; Pain; Wrist; Right TECHNIQUE: Imaging protocol: XR Right wrist. Views: 3 or more views. COMPARISON: CR Hand, complete RIGHT 11/30/2018 4:53 AM FINDINGS: Bones/joints: Normal. Soft tissues: Normal. IMPRESSION: No acute findings. Electronically signed by: Brien Torres On 11/30/2018 05:34:44 AM
--- NOTE | 2018-11-30 05:36 | REPVR ---
PROCEDURE INFORMATION: Exam: XR Right Hand Exam date and time: 11/30/2018 5:05 AM Clinical history: 43 years old, female; Pain; Hand; Right TECHNIQUE: Imaging protocol: XR Right hand. Views: 3 or more views. COMPARISON: No relevant prior studies available. FINDINGS: Bones/joints: Normal. Soft tissues: Normal. IMPRESSION: No acute findings. Electronically signed by: Brien Torres On 11/30/2018 05:35:45 AM
[2018-11-30 05:39] LABS: BASO # 0.1 10^3/uL (0.0-0.2); BASO % 0.6 % (0.0-1.0); EOS % 0.1 % (0.0-3.0); HEMATOCRIT 44.9 % (36.0-47.0); HEMOGLOBIN 14.9 g/dl (12.0-15.5); LYMPH # 1.1 10^3/uL (1.5-5.0); LYMPH % 9.3 % (24.0-44.0); MEAN CORPUSCULAR HEMOGLOBIN 29.3 pg (27.0-33.0); MEAN CORPUSCULAR HGB CONC 33.2 g/dl (32.0-36.5); MEAN CORPUSCULAR VOLUME 88.4 fl (80.0-96.0); MONO # 0.6 10^3/uL (0.0-0.8); NEUTROPHILS # 9.7 10^3/uL (1.5-8.5); NEUTROPHILS % 84.7 % (36.0-66.0); PLATELET COUNT, AUTOMATED 353 10^3/uL (150-450); RED BLOOD COUNT 5.08 10^6/uL (4.00-5.40); WHITE BLOOD COUNT 11.4 10^3/uL (4.0-10.0)
[2018-11-30 05:52] LABS: BLOOD UREA NITROGEN 12 MG/DL (7-18); CALCIUM LEVEL 9.2 MG/DL (8.5-10.1); CARBON DIOXIDE LEVEL 22 MEQ/L (21-32); CHLORIDE LEVEL 109 MEQ/L (98-107); CREATININE FOR GFR 0.82 MG/DL (0.55-1.30); GLOMERULAR FILTRATION RATE > 60.0 (>58); GLUCOSE, FASTING 162 MG/DL (70-100); POTASSIUM SERUM 4.7 MEQ/L (3.5-5.1); SODIUM LEVEL 139 MEQ/L (136-145)
--- NOTE | 2018-11-30 06:11 | REPVR ---
PROCEDURE INFORMATION: Exam: US Duplex Right Upper Extremity Veins, Limited Exam date and time: 11/30/2018 5:56 AM Clinical history: 43 years old, female; Pain; Hand and other: Wrist; Right; Additional info: R arm pain R/O dvt TECHNIQUE: Imaging protocol: Real-time Duplex ultrasound of the Right Upper Extremity with 2-D mendez scale, color Doppler flow and spectral waveform analysis with image documentation. Limited exam focused on the right upper extremity veins. COMPARISON: US DUPLEX EXT UPPER VEINS UNILATE 08/14/2013 9:14 PM FINDINGS: Right deep veins: Unremarkable. Axillary and brachial veins are patent throughout without thrombus. Normal Doppler waveforms. Normal compressibility and/or augmentation response. Visualized internal jugular and subclavian veins are patent. Right superficial veins: Unremarkable. Visualized cephalic and basilic veins are patent without thrombus. Soft tissues: Unremarkable. IMPRESSION: No acute findings. No evidence of deep vein thrombosis. Electronically signed by: Brien Torres On 11/30/2018 06:10:55 AM
[2018-11-30 06:39] VITALS: BP 126/57
== END 2018-11-30 06:40 | disposition home or self-care (01) ==
LOC: M ED 03:54
DX: M25.541 Pain in joints of right hand (principal); E11.9 Type 2 diabetes mellitus without complications; G89.29 Other chronic pain; G43.909 Migraine, unspecified, not intractable, without status migrainosus; F17.200 Nicotine dependence, unspecified, uncomplicated; Z79.82 Long term (current) use of aspirin; Z79.84 Long term (current) use of oral hypoglycemic drugs; Z79.899 Other long term (current) drug therapy; Z88.2 Allergy status to sulfonamides

== ENCOUNTER → 2019-03-04 | Outpatient (CLI) | payer OTHER ==
[~2019-03-04] MED LIST changes: +LIPI20TA PO; +MAXA10TA14 PO; +TOPA1TAB PO
--- NOTE | 2019-03-04 10:02 | REP ---
Left knee: Five views. History: Pain. Findings: Five views of the left knee demonstrate no evidence of fracture, subluxation, or arthropathy. No evidence of joint effusion. Impression: Negative radiographs of the left knee. No traumatic abnormality seen. Electronically Signed by Andrea Bee MD 03/04/2019 09:53 A
== END ==
LOC: M WUC 09:05
PROVIDERS: ATTEND Physician Assistant
DX: M25.562 Pain in left knee (principal)

== ENCOUNTER → 2019-07-08 | Outpatient (CLI) | payer OTHER ==
[2019-07-08 19:55] LABS: BASO # 0.1 10^3/uL (0.0-0.2); BASO % 0.9 % (0.0-1.0); EOS # 0.3 10^3/uL (0.0-0.5); EOS % 2.3 % (0.0-3.0); HEMATOCRIT 48.1 % (36.0-47.0); HEMOGLOBIN 15.6 g/dl (12.0-15.5); LYMPH # 3.3 10^3/uL (1.5-5.0); LYMPH % 27.9 % (24.0-44.0); MEAN CORPUSCULAR HGB CONC 32.4 g/dl (32.0-36.5); MEAN CORPUSCULAR VOLUME 89.4 fl (80.0-96.0); MONO # 0.8 10^3/uL (0.0-0.8); MONO % 6.7 % (0.0-5.0); NEUTROPHILS # 7.3 10^3/uL (1.5-8.5); NEUTROPHILS % 61.9 % (36.0-66.0); PLATELET COUNT, AUTOMATED 342 10^3/uL (150-450); RED BLOOD COUNT 5.38 10^6/uL (4.00-5.40); WHITE BLOOD COUNT 11.8 10^3/uL (4.0-10.0)
[2019-07-08 20:08] LABS: ALBUMIN 3.5 GM/DL (3.2-5.2); ALT/SGPT 26 U/L (12-78); BILIRUBIN,TOTAL 0.3 MG/DL (0.2-1.0); BLOOD UREA NITROGEN 12 MG/DL (7-18); CALCIUM LEVEL 8.7 MG/DL (8.5-10.1); CARBON DIOXIDE LEVEL 23 MEQ/L (21-32); CHLORIDE LEVEL 112 MEQ/L (98-107); CHOLESTEROL LEVEL 124 MG/DL (<200); CHOLESTEROL RISK RATIO 3.647 (<5); CREATININE FOR GFR 0.85 MG/DL (0.55-1.30); FREE T4 1.29 NG/DL (0.76-1.46); GLOMERULAR FILTRATION RATE > 60.0 (>58); GLUCOSE, FASTING 147 MG/DL (70-100); HDL CHOLESTEROL 34 MG/DL (>40); LDL CHOLESTEROL 36 MG/DL (<100); NON-HDL-C 90 MG/DL; POTASSIUM SERUM 4.4 MEQ/L (3.5-5.1); SODIUM LEVEL 143 MEQ/L (136-145); TOTAL PROTEIN 6.8 GM/DL (6.4-8.2); TRIGLYCERIDES LEVEL 268 MG/DL (<150)
[2019-07-08 20:23] LABS: HEMOGLOBIN A1c 6.8 %
== END ==
LOC: M WUC 15:07
PROVIDERS: ATTEND Nurse Practitioner Family
DX: E11.9 Type 2 diabetes mellitus without complications (principal); E78.5 Hyperlipidemia, unspecified; K21.0 Gastro-esophageal reflux disease with esophagitis; F17.200 Nicotine dependence, unspecified, uncomplicated

== ENCOUNTER 2019-07-27 11:29 | Emergency (ER) | payer OTHER ==
[~2019-07-27] VITALS: Ht 172.7 cm; Wt 86.2 kg
[2019-07-27] MEDS ORDERED: ATOR1TAB21 PO (11:41)
[2019-07-27] MEDS ORDERED: MIRE1IUD IU (11:41)
[2019-07-27] MEDS ORDERED: TRAM50TA2 (11:41)
[2019-07-27] MEDS ORDERED: PANT40TA3 PO (11:41)
[2019-07-27] MEDS ORDERED: STEG5TAB PO (11:41)
[2019-07-27] MEDS ORDERED: FLUTISP (11:41)
[2019-07-27] MEDS ORDERED: ONDA-83 (11:41)
[2019-07-27] MEDS ORDERED: AMIT25TA PO (11:41)
--- NOTE | 2019-07-27 12:11 | REP ---
Portable chest x-ray: Single view. History: Chest pain. Comparison chest x-ray: April 03, 2016. Findings: Monitoring electrodes overlie the chest. Heart is not enlarged. Pulmonary vasculature is not increased. Pleural angles are sharp. Lung núñez are clear. Impression: Negative portable chest x-ray. Electronically Signed by Andrea Bee MD 07/27/2019 12:03 P
[2019-07-27 12:23] LABS: INR 0.95; PROTHROMBIN TIME 12.4 SECONDS (11.8-14.0)
[2019-07-27 12:32] LABS: BASO # 0.1 10^3/uL (0.0-0.2); EOS # 0.2 10^3/uL (0.0-0.5); EOS % 2.2 % (0.0-3.0); HEMATOCRIT 45.6 % (36.0-47.0); HEMOGLOBIN 15.1 g/dl (12.0-15.5); LYMPH # 2.2 10^3/uL (1.5-5.0); LYMPH % 22.7 % (24.0-44.0); MEAN CORPUSCULAR HEMOGLOBIN 29.2 pg (27.0-33.0); MEAN CORPUSCULAR HGB CONC 33.1 g/dl (32.0-36.5); MONO # 0.6 10^3/uL (0.0-0.8); MONO % 6.6 % (0.0-5.0); NEUTROPHILS # 6.5 10^3/uL (1.5-8.5); PLATELET COUNT, AUTOMATED 348 10^3/uL (150-450); RED BLOOD COUNT 5.18 10^6/uL (4.00-5.40); WHITE BLOOD COUNT 9.7 10^3/uL (4.0-10.0)
[2019-07-27 12:35] LABS: ALBUMIN 3.4 GM/DL (3.2-5.2); ALT/SGPT 21 U/L (12-78); BILIRUBIN,DIRECT 0.2 MG/DL (0.0-0.2); BILIRUBIN,TOTAL 0.6 MG/DL (0.2-1.0); CK-MB VALUE MASS 1.6 NG/ML (<3.6); CPK CREATINE PHOSPHOKINASE 189 U/L (26-192); LIPASE 65 U/L (73-393); MB/CK RELATIVE INDEX 0.85 (< OR =4); TOTAL PROTEIN 7.1 GM/DL (6.4-8.2); TROPONIN I < 0.02 NG/ML (< 0.10)
[2019-07-27 13:45] VITALS: BP 118/77
--- NOTE | 2019-07-27 21:06 | ECGEPIP ---
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
== END 2019-07-27 14:30 | disposition left against medical advice (07) ==
LOC: EDBD 11:29 → M ED 11:29
DX: R07.9 Chest pain, unspecified (principal); K21.9 Gastro-esophageal reflux disease without esophagitis; E11.9 Type 2 diabetes mellitus without complications; G43.909 Migraine, unspecified, not intractable, without status migrainosus; F17.210 Nicotine dependence, cigarettes, uncomplicated; Z88.2 Allergy status to sulfonamides; Z79.899 Other long term (current) drug therapy; Z79.82 Long term (current) use of aspirin

== ENCOUNTER → 2020-03-14 | Outpatient (REF) | payer OTHER ==
[~2020-03-14] MED LIST changes: +AMIT25TA17 PO; +ATOR1TAB21 PO; +FLUTISP; +MIRE1IUD IU; +ONDA-83; +PANT40TA29 PO; +STEG5TAB PO; +TRAM50TA2
[2020-03-14 17:15] LABS: ALBUMIN 3.9 GM/DL (3.2-5.2); ALT/SGPT 23 U/L (12-78); BILIRUBIN,TOTAL 0.3 MG/DL (0.2-1.0); BLOOD UREA NITROGEN 14 MG/DL (7-18); CALCIUM LEVEL 9.8 MG/DL (8.5-10.1); CARBON DIOXIDE LEVEL 30 MEQ/L (21-32); CHLORIDE LEVEL 105 MEQ/L (98-107); CHOLESTEROL LEVEL 129 MG/DL (<200); CREATININE FOR GFR 0.86 MG/DL (0.55-1.30); GLOMERULAR FILTRATION RATE > 60.0 (>58); GLUCOSE, FASTING 94 MG/DL (70-100); HDL CHOLESTEROL 43 MG/DL (>40); LDL CHOLESTEROL 48 MG/DL (<100); NON-HDL-C 86 MG/DL; POTASSIUM SERUM 4.3 MEQ/L (3.5-5.1); SODIUM LEVEL 138 MEQ/L (136-145); TOTAL PROTEIN 7.1 GM/DL (6.4-8.2); TRIGLYCERIDES LEVEL 188 MG/DL (<150)
[2020-03-14 17:19] LABS: BASO # 0.1 10^3/uL (0.0-0.2); BASO % 0.8 % (0.0-1.0); EOS # 0.3 10^3/uL (0.0-0.5); EOS % 2.1 % (0.0-3.0); HEMATOCRIT 49.9 % (36.0-47.0); HEMOGLOBIN 16.2 g/dl (12.0-15.5); LYMPH # 3.8 10^3/uL (1.5-5.0); LYMPH % 28.1 % (24.0-44.0); MEAN CORPUSCULAR HEMOGLOBIN 29.7 pg (27.0-33.0); MEAN CORPUSCULAR HGB CONC 32.5 g/dl (32.0-36.5); MEAN CORPUSCULAR VOLUME 91.6 fl (80.0-96.0); MONO # 0.7 10^3/uL (0.0-0.8); MONO % 5.2 % (0.0-5.0); NEUTROPHILS # 8.5 10^3/uL (1.5-8.5); NEUTROPHILS % 63.5 % (36.0-66.0); PLATELET COUNT, AUTOMATED 340 10^3/uL (150-450); RED BLOOD COUNT 5.45 10^6/uL (4.00-5.40); WHITE BLOOD COUNT 13.4 10^3/uL (4.0-10.0)
[2020-03-14 17:48] LABS: HEMOGLOBIN A1c 6.7 %
== END ==
LOC: M SFHCCLAY 12:58
PROVIDERS: ATTEND Nurse Practitioner Family
DX: G43.809 Other migraine, not intractable, without status migrainosus (principal)

== ENCOUNTER → 2020-09-12 | Outpatient (CLI) | payer OTHER ==
[~2020-09-12] MED LIST changes: +CEPH500C PO
--- NOTE | 2020-09-12 08:23 | REP ---
INDICATION: POLYCYTHEMIA, CHECK SPLEEN SIZE. COMPARISON: No prior ultrasound TECHNIQUE: Left upper quadrant scanning attention spleen FINDINGS: The spleen measures 10.8 x 9.9 x 3.5 cm. The volumetric index calculation is 374. There is no free fluid in the abdomen. IMPRESSION: Unremarkable left upper quadrant ultrasound. Accredited by the [employer] in General Ultrasound. <Electronically signed by Puneet Rowe > 09/12/20 0804
== END ==
LOC: M RAD 07:20
PROVIDERS: ATTEND Specialist
DX: D45 Polycythemia vera (principal)

== ENCOUNTER → 2021-01-06 | Outpatient (REF) | payer OTHER ==
[2021-01-06 14:56] LABS: BASO # 0.1 10^3/uL (0.0-0.2); BASO % 0.6 % (0.0-1.0); EOS # 0.2 10^3/uL (0.0-0.5); EOS % 1.8 % (0.0-3.0); HEMATOCRIT 48.1 % (36.0-47.0); HEMOGLOBIN 15.8 g/dl (12.0-15.5); LYMPH # 2.4 10^3/uL (1.5-5.0); LYMPH % 23.9 % (24.0-44.0); MEAN CORPUSCULAR HEMOGLOBIN 30.3 pg (27.0-33.0); MEAN CORPUSCULAR HGB CONC 32.8 g/dl (32.0-36.5); MEAN CORPUSCULAR VOLUME 92.3 fl (80.0-96.0); MONO # 0.7 10^3/uL (0.0-0.8); MONO % 6.4 % (2.0-8.0); NEUTROPHILS # 6.8 10^3/uL (1.5-8.5); NEUTROPHILS % 66.8 % (36.0-66.0); PLATELET COUNT, AUTOMATED 306 10^3/uL (150-450); RED BLOOD COUNT 5.21 10^6/uL (4.00-5.40); WHITE BLOOD COUNT 10.2 10^3/uL (4.0-10.0)
[2021-01-06 15:15] LABS: HEMOGLOBIN A1c 5.8 %
[2021-01-06 15:36] LABS: CREATININE, URINE 40.8 MG/DL; MALB URINE SIEMENS < 5.0 MG/L; MAU/CREAT RATIO 12.2 MCG/MG (0.0-30.0)
[2021-01-06 15:38] LABS: CHOLESTEROL RISK RATIO 3.675 (<5); FREE T4 0.96 NG/DL (0.76-1.46); THYROID STIMULATING HORMONE 2.42 uIU/ML (0.358-3.740)
== END ==
LOC: M LAB REF 14:27
PROVIDERS: ATTEND Nurse Practitioner Family
DX: G43.809 Other migraine, not intractable, without status migrainosus (principal); E11.9 Type 2 diabetes mellitus without complications; F17.200 Nicotine dependence, unspecified, uncomplicated; E78.5 Hyperlipidemia, unspecified; K21.00 Gastro-esophageal reflux disease with esophagitis, without bleeding

== ENCOUNTER → 2021-03-10 | Outpatient (REF) | payer OTHER ==
[2021-03-10 15:16] LABS: ALBUMIN 3.5 GM/DL (3.2-5.2); ALT/SGPT 26 U/L (12-78); BILIRUBIN,TOTAL 0.3 MG/DL (0.2-1.0); BLOOD UREA NITROGEN 17 MG/DL (7-18); CALCIUM LEVEL 8.4 MG/DL (8.5-10.1); CARBON DIOXIDE LEVEL 26 MEQ/L (21-32); CHLORIDE LEVEL 109 MEQ/L (98-107); CREATININE FOR GFR 0.82 MG/DL (0.55-1.30); GLOMERULAR FILTRATION RATE > 60.0 (>58); GLUCOSE, FASTING 91 MG/DL (70-100); SODIUM LEVEL 138 MEQ/L (136-145); TOTAL PROTEIN 7.2 GM/DL (6.4-8.2)
[2021-03-10 15:20] LABS: HEMOGLOBIN A1c 5.7 %
== END ==
LOC: M LAB REF 14:31
PROVIDERS: ATTEND Nurse Practitioner Family
DX: E11.9 Type 2 diabetes mellitus without complications (principal)

== ENCOUNTER → 2021-06-04 | Outpatient (CLI) | payer OTHER | LOC: M CLY 11:18 | PROVIDERS: ATTEND Physician Assistant | DX: M25.511 Pain in right shoulder (principal) ==

== ENCOUNTER → 2021-07-09 | Outpatient (REF) | payer OTHER | LOC: M SFHCCLAY 13:54 | PROVIDERS: ATTEND Nurse Practitioner Family | DX: U09.9 Post COVID-19 condition, unspecified (principal) ==

== ENCOUNTER → 2021-07-15 | Outpatient (REF) | payer OTHER ==
[2021-07-15 16:10] LABS: BASO # 0.1 10^3/uL (0.0-0.2); BASO % 1.1 % (0.0-1.0); EOS # 0.2 10^3/uL (0.0-0.5); EOS % 2.4 % (0.0-3.0); HEMATOCRIT 50.1 % (36.0-47.0); HEMOGLOBIN 16.7 g/dl (12.0-15.5); LYMPH # 2.2 10^3/uL (1.5-5.0); LYMPH % 23.3 % (24.0-44.0); MEAN CORPUSCULAR HEMOGLOBIN 30.5 pg (27.0-33.0); MEAN CORPUSCULAR HGB CONC 33.3 g/dl (32.0-36.5); MEAN CORPUSCULAR VOLUME 91.4 fl (80.0-96.0); MONO # 0.9 10^3/uL (0.0-0.8); MONO % 9.5 % (2.0-8.0); NEUTROPHILS # 5.9 10^3/uL (1.5-8.5); NEUTROPHILS % 63.4 % (36.0-66.0); PLATELET COUNT, AUTOMATED 353 10^3/uL (150-450); RED BLOOD COUNT 5.48 10^6/uL (4.00-5.40); WHITE BLOOD COUNT 9.2 10^3/uL (4.0-10.0)
[2021-07-15 16:36] LABS: ALBUMIN 3.6 GM/DL (3.2-5.2); ALT/SGPT 23 U/L (12-78); BILIRUBIN,TOTAL 0.5 MG/DL (0.2-1.0); BLOOD UREA NITROGEN 12 MG/DL (7-18); C REACTIVE PROTEIN QUANTITATIV 1.51 MG/DL (0.00-0.30); CALCIUM LEVEL 9.6 MG/DL (8.5-10.1); CARBON DIOXIDE LEVEL 23 MEQ/L (21-32); CHLORIDE LEVEL 110 MEQ/L (98-107); CREATININE FOR GFR 0.76 MG/DL (0.55-1.30); GLOMERULAR FILTRATION RATE > 60.0 (>58); GLUCOSE, FASTING 92 MG/DL (70-100); POTASSIUM SERUM 4.5 MEQ/L (3.5-5.1); SODIUM LEVEL 140 MEQ/L (136-145)
== END ==
LOC: M SFHCCLAY 13:14
PROVIDERS: ATTEND Nurse Practitioner Family
DX: E11.9 Type 2 diabetes mellitus without complications (principal); J15.4 Pneumonia due to other streptococci

== ENCOUNTER → 2021-07-18 | Outpatient (CLI) | payer OTHER | LOC: M RAD 16:43 | PROVIDERS: ATTEND Nurse Practitioner Family | DX: R05.3 Chronic cough (principal); U09.9 Post COVID-19 condition, unspecified; F17.200 Nicotine dependence, unspecified, uncomplicated; J43.2 Centrilobular emphysema; K57.30 Diverticulosis of large intestine without perforation or abscess without bleeding; K76.89 Other specified diseases of liver ==

== ENCOUNTER → 2021-10-22 | Outpatient (CLI) | payer OTHER | LOC: M PLAIMG 13:03 | PROVIDERS: ATTEND Nurse Practitioner Family | DX: R91.8 Other nonspecific abnormal finding of lung field (principal); J43.2 Centrilobular emphysema; R16.0 Hepatomegaly, not elsewhere classified ==

== ENCOUNTER → 2022-03-05 | Outpatient (REF) | payer OTHER ==
[~2022-03-05] MED LIST changes: -MAXA10TA14 PO; +RIZA10TA64 PO
[2022-03-05 11:24] LABS: BASO # 0.1 10^3/uL (0.0-0.2); BASO % 0.9 % (0.0-1.0); EOS # 0.2 10^3/uL (0.0-0.5); HEMATOCRIT 49.6 % (36.0-47.0); HEMOGLOBIN 16.2 g/dl (12.0-15.5); LYMPH # 2.3 10^3/uL (1.5-5.0); LYMPH % 20.1 % (24.0-44.0); MEAN CORPUSCULAR HEMOGLOBIN 30.7 pg (27.0-33.0); MEAN CORPUSCULAR HGB CONC 32.7 g/dl (32.0-36.5); MEAN CORPUSCULAR VOLUME 93.9 fl (80.0-96.0); MONO # 0.7 10^3/uL (0.0-0.8); MONO % 6.6 % (2.0-8.0); NEUTROPHILS # 7.8 10^3/uL (1.5-8.5); PLATELET COUNT, AUTOMATED 358 10^3/uL (150-450); RED BLOOD COUNT 5.28 10^6/uL (4.00-5.40); WHITE BLOOD COUNT 11.2 10^3/uL (4.0-10.0)
[2022-03-05 11:51] LABS: HEMOGLOBIN A1c 5.8 % (4.0-6.0)
[2022-03-05 11:54] LABS: ALBUMIN 3.7 G/DL (3.2-5.2); ALKALINE PHOSPHATASE 159 U/L (46-116); ALT/SGPT 24 U/L (7.0-40); AST/SGOT 15 U/L (<34); BILIRUBIN,TOTAL 0.4 MG/DL (0.3-1.2); BLOOD UREA NITROGEN 13 MG/DL (9-23); CALCIUM LEVEL 9.2 MG/DL (8.5-10.1); CARBON DIOXIDE LEVEL 28 MMOL/L (20-31); CHLORIDE LEVEL 103 MMOL/L (98-107); CHOLESTEROL LEVEL 117 MG/DL (<200); CHOLESTEROL RISK RATIO 2.78 (<5); GLOMERULAR FILTRATION RATE > 60.0 (>58); GLUCOSE, FASTING 120 MG/DL (60-100); NON-HDL-C 75 MG/DL; POTASSIUM SERUM 5.3 MMOL/L (3.5-5.1); SODIUM LEVEL 138 MMOL/L (136-145); TOTAL PROTEIN 6.5 G/DL (5.7-8.2); TRIGLYCERIDES LEVEL 90 MG/DL (<150)
[2022-03-05 11:55] LABS: THYROID STIMULATING HORMONE 1.831 uIU/ML (0.55-4.78)
[2022-03-05 11:56] LABS: FREE T4 1.24 NG/DL (0.89-1.76)
== END ==
LOC: M SFHCCLAY 07:56
PROVIDERS: ATTEND Nurse Practitioner Family
DX: E11.9 Type 2 diabetes mellitus without complications (principal); F17.200 Nicotine dependence, unspecified, uncomplicated; J43.2 Centrilobular emphysema; U09.9 Post COVID-19 condition, unspecified; R05.3 Chronic cough; R91.8 Other nonspecific abnormal finding of lung field

== ENCOUNTER 2022-04-02 08:11 | Emergency (ER) | payer OTHER ==
[~2022-04-02] VITALS: Ht 172.7 cm; Wt 77.3 kg
[2022-04-02] MEDS ORDERED: METHOCARBAMOL 1,000 MG/10 ML VIAL IV ONE (09:25)
[2022-04-02] MEDS ORDERED: GABAPENTIN 100 MG CAP PO ONE (09:25)
[2022-04-02] MEDS ORDERED: KETOROLAC 30 MG/ML 1ML VIAL IV ONE ×2 (10:00→13:35)
[2022-04-02] MEDS ORDERED: fentaNYL 100 MCG/2 ML INJECTION IV ONE (13:35)
[2022-04-02] MEDS ORDERED: PERCOCET 5MG/325MG TAB PO ONE (15:35)
[2022-04-02] MEDS ORDERED: KETO10TAB PO (15:44)
[2022-04-02] MEDS ORDERED: MEDR4PAK PO (15:44)
[2022-04-02] MEDS ORDERED: PERC5TAB12 PO (15:44)
[2022-04-02] MEDS ORDERED: NEUR300C PO (15:44)
[2022-04-02 16:22] VITALS: BP 116/77
== END 2022-04-02 16:25 | disposition home or self-care (01) ==
LOC: M ED 08:11
DX: M51.16 Intervertebral disc disorders with radiculopathy, lumbar region (principal); E11.9 Type 2 diabetes mellitus without complications; G43.909 Migraine, unspecified, not intractable, without status migrainosus; J44.9 Chronic obstructive pulmonary disease, unspecified; E78.5 Hyperlipidemia, unspecified; Z88.2 Allergy status to sulfonamides; F17.200 Nicotine dependence, unspecified, uncomplicated; Z79.82 Long term (current) use of aspirin; Z79.899 Other long term (current) drug therapy
CPT/HCPCS: 72131; 72148; 80047; 84702; 96374; 96375; 96376; 99284; J1100; J1885; J2800; J3010

== ENCOUNTER → 2022-10-21 | Outpatient (REF) | payer OTHER ==
[~2022-10-21] MED LIST changes: -AMIT25TA17 PO; +AMIT25TA19 PO; +FLUT50SP17; -FLUTISP; +KETO10TAB PO; +MEDR4PAK PO; +NEUR300C PO; +PERC5TAB12 PO
[2022-10-21 18:56] LABS: HEMOGLOBIN A1c 6.1 % (4.0-6.0)
[2022-10-21 19:05] LABS: ALBUMIN 3.9 G/DL (3.2-5.2); ALKALINE PHOSPHATASE 186 U/L (46-116); ALT/SGPT 24 U/L (7.0-40); AST/SGOT 9 U/L (<34); BILIRUBIN,TOTAL 0.6 MG/DL (0.3-1.2); BLOOD UREA NITROGEN 11 MG/DL (9-23); CALCIUM LEVEL 9.4 MG/DL (8.5-10.1); CARBON DIOXIDE LEVEL 27 MMOL/L (20-31); CHLORIDE LEVEL 106 MMOL/L (98-107); CREATININE FOR GFR 0.75 MG/DL (0.55-1.30); GLOMERULAR FILTRATION RATE > 60.0 (>58); GLUCOSE, FASTING 102 MG/DL (60-100); POTASSIUM SERUM 5.5 MMOL/L (3.5-5.1); SODIUM LEVEL 138 MMOL/L (136-145)
== END ==
LOC: M SFHCCLAY 10:47
PROVIDERS: ATTEND Nurse Practitioner Family
DX: E11.9 Type 2 diabetes mellitus without complications (principal); F17.200 Nicotine dependence, unspecified, uncomplicated; J43.2 Centrilobular emphysema; U09.9 Post COVID-19 condition, unspecified; R05.3 Chronic cough; R91.8 Other nonspecific abnormal finding of lung field

== ENCOUNTER → 2023-04-23 | Outpatient (CLI) | payer OTHER ==
[~2023-04-23] MED LIST changes: -FLUT50SP17; +FLUTISP
[2023-04-23 17:00] LABS: BASO # 0.1 10^3/uL (0.0-0.2); BASO % 0.8 % (0.0-1.0); EOS # 0.3 10^3/uL (0.0-0.5); EOS % 2.6 % (0.0-3.0); HEMATOCRIT 51.7 % (36.0-47.0); HEMOGLOBIN 17.1 g/dl (12.0-15.5); LYMPH # 2.8 10^3/uL (1.5-5.0); LYMPH % 22.1 % (24.0-44.0); MEAN CORPUSCULAR HEMOGLOBIN 30.9 pg (27.0-33.0); MEAN CORPUSCULAR HGB CONC 33.1 g/dl (32.0-36.5); MEAN CORPUSCULAR VOLUME 93.3 fl (80.0-96.0); MONO # 0.9 10^3/uL (0.0-0.8); NEUTROPHILS # 8.5 10^3/uL (1.5-8.5); NEUTROPHILS % 67.2 % (36.0-66.0); PLATELET COUNT, AUTOMATED 363 10^3/uL (150-450); RED BLOOD COUNT 5.54 10^6/uL (4.00-5.40); WHITE BLOOD COUNT 12.7 10^3/uL (4.0-10.0)
[2023-04-23 17:01] LABS: ALBUMIN 3.9 G/DL (3.2-5.2); ALKALINE PHOSPHATASE 191 U/L (46-116); ALT/SGPT 23 U/L (7.0-40); AST/SGOT 14 U/L (<34); BILIRUBIN,TOTAL 0.3 MG/DL (0.3-1.2); BLOOD UREA NITROGEN 16 MG/DL (9-23); CALCIUM LEVEL 9.2 MG/DL (8.5-10.1); CARBON DIOXIDE LEVEL 27 MMOL/L (20-31); CHLORIDE LEVEL 108 MMOL/L (98-107); CHOLESTEROL LEVEL 136 MG/DL (<200); CHOLESTEROL RISK RATIO 3.76 (<5); CREATININE FOR GFR 0.77 MG/DL (0.55-1.30); GLOMERULAR FILTRATION RATE > 60.0 (>58); GLUCOSE, FASTING 120 MG/DL (60-100); HDL CHOLESTEROL 36.1 MG/DL (>40); LDL CHOLESTEROL 71.5 MG/DL (<100); NON-HDL-C 99.9 MG/DL; POTASSIUM SERUM 4.4 MMOL/L (3.5-5.1); SODIUM LEVEL 141 MMOL/L (136-145); TOTAL PROTEIN 6.9 G/DL (5.7-8.2); TRIGLYCERIDES LEVEL 142 MG/DL (<150)
[2023-04-23 17:05] LABS: FREE T4 1.18 NG/DL (0.89-1.76)
[2023-04-23 17:06] LABS: CREATININE, URINE 67.4 MG/DL; MAU/CREAT RATIO 7.4 MCG/MG (0.0-30.0)
[2023-04-23 17:31] LABS: HEMOGLOBIN A1c 6.5 % (4.0-6.0)
== END ==
LOC: M WUC 11:44
PROVIDERS: ATTEND Nurse Practitioner Family
DX: E11.9 Type 2 diabetes mellitus without complications (principal); F17.200 Nicotine dependence, unspecified, uncomplicated; J43.2 Centrilobular emphysema; U09.9 Post COVID-19 condition, unspecified; R05.3 Chronic cough; R91.8 Other nonspecific abnormal finding of lung field

== ENCOUNTER → 2023-07-20 | Outpatient (REF) | payer OTHER | LOC: M SFHCCLAY 16:16 | PROVIDERS: ATTEND Nurse Practitioner Family | DX: E11.9 Type 2 diabetes mellitus without complications (principal); F17.200 Nicotine dependence, unspecified, uncomplicated; J43.2 Centrilobular emphysema; R05.3 Chronic cough; R91.8 Other nonspecific abnormal finding of lung field; N95.1 Menopausal and female climacteric states ==

== ENCOUNTER → 2023-10-11 | Outpatient (REF) | payer OTHER ==
[2023-10-11 18:15] LABS: BASO # 0.1 10^3/uL (0.0-0.2); BASO % 1.3 % (0.0-1.0); EOS # 0.3 10^3/uL (0.0-0.5); EOS % 3.4 % (0.0-3.0); HEMATOCRIT 48.2 % (36.0-47.0); HEMOGLOBIN 15.8 g/dl (12.0-15.5); LYMPH # 3.2 10^3/uL (1.5-5.0); LYMPH % 33.1 % (24.0-44.0); MEAN CORPUSCULAR HEMOGLOBIN 30.7 pg (27.0-33.0); MEAN CORPUSCULAR HGB CONC 32.8 g/dl (32.0-36.5); MEAN CORPUSCULAR VOLUME 93.6 fl (80.0-96.0); MONO # 0.8 10^3/uL (0.0-0.8); MONO % 7.8 % (2.0-8.0); NEUTROPHILS # 5.2 10^3/uL (1.5-8.5); NEUTROPHILS % 54.1 % (36.0-66.0); PLATELET COUNT, AUTOMATED 303 10^3/uL (150-450); RED BLOOD COUNT 5.15 10^6/uL (4.00-5.40); WHITE BLOOD COUNT 9.6 10^3/uL (4.0-10.0)
[2023-10-11 18:43] LABS: ALBUMIN 3.7 G/DL (3.2-5.2); ALKALINE PHOSPHATASE 170 U/L (46-116); ALT/SGPT 29 U/L (7.0-40); AST/SGOT 14 U/L (<34); BILIRUBIN,TOTAL 0.2 MG/DL (0.3-1.2); BLOOD UREA NITROGEN 14 MG/DL (9-23); CARBON DIOXIDE LEVEL 29 MMOL/L (20-31); CHLORIDE LEVEL 108 MMOL/L (98-107); CHOLESTEROL LEVEL 120 MG/DL (<200); CHOLESTEROL RISK RATIO 2.88 (<5); CREATININE FOR GFR 0.77 MG/DL (0.55-1.30); GLOMERULAR FILTRATION RATE > 60.0 (>58); GLUCOSE, FASTING 90 MG/DL (60-100); HDL CHOLESTEROL 41.6 MG/DL (>40); LDL CHOLESTEROL 47.4 MG/DL (<100); NON-HDL-C 78.4 MG/DL; POTASSIUM SERUM 5.4 MMOL/L (3.5-5.1); SODIUM LEVEL 138 MMOL/L (136-145); TOTAL PROTEIN 6.6 G/DL (5.7-8.2); TRIGLYCERIDES LEVEL 155 MG/DL (<150)
[2023-10-11 18:44] LABS: FOLLICLE STIMULATING HORMONE 40.6 mIU/ML
[2023-10-11 18:45] LABS: FREE T4 0.89 NG/DL (0.89-1.76); LUTEINIZING HORMONE 14.1 mIU/ML; TESTOSTERONE 10 NG/DL (14-76); THYROID STIMULATING HORMONE 3.962 uIU/ML (0.55-4.78)
[2023-10-11 18:59] LABS: HEMOGLOBIN A1c 6.4 % (4.0-6.0)
== END ==
LOC: M SFHCCLAY 12:44
PROVIDERS: ATTEND Nurse Practitioner Family
DX: E11.9 Type 2 diabetes mellitus without complications (principal); F17.200 Nicotine dependence, unspecified, uncomplicated; J43.2 Centrilobular emphysema; R05.3 Chronic cough; R91.8 Other nonspecific abnormal finding of lung field; N95.1 Menopausal and female climacteric states

== ENCOUNTER → 2024-04-18 | Outpatient (CLI) | payer OTHER | LOC: M CLY 09:00 | PROVIDERS: ATTEND Nurse Practitioner Family | DX: R05.1 Acute cough (principal) ==

== ENCOUNTER → 2024-04-18 | Outpatient (REF) | payer OTHER ==
[2024-04-18 17:44] LABS: BASO # 0.1 10^3/uL (0.0-0.2); BASO % 1.2 % (0.0-1.0); EOS # 0.2 10^3/uL (0.0-0.5); EOS % 2.5 % (0.0-3.0); HEMATOCRIT 51.2 % (36.0-47.0); HEMOGLOBIN 17.3 g/dl (12.0-15.5); LYMPH # 2.2 10^3/uL (1.5-5.0); LYMPH % 23.9 % (24.0-44.0); MEAN CORPUSCULAR HEMOGLOBIN 30.9 pg (27.0-33.0); MEAN CORPUSCULAR HGB CONC 33.8 g/dl (32.0-36.5); MEAN CORPUSCULAR VOLUME 91.6 fl (80.0-96.0); MONO # 0.6 10^3/uL (0.0-0.8); MONO % 6.5 % (2.0-8.0); NEUTROPHILS % 65.6 % (36.0-66.0); PLATELET COUNT, AUTOMATED 308 10^3/uL (150-450); RED BLOOD COUNT 5.59 10^6/uL (4.00-5.40); WHITE BLOOD COUNT 9.1 10^3/uL (4.0-10.0)
[2024-04-18 17:46] LABS: ALBUMIN 3.7 G/DL (3.2-5.2); ALKALINE PHOSPHATASE 180 U/L (35-104); ALT/SGPT 51 U/L (7.0-40); AST/SGOT 26 U/L (<34); BILIRUBIN,TOTAL 0.5 MG/DL (0.3-1.2); BLOOD UREA NITROGEN 11 MG/DL (9-23); CALCIUM LEVEL 9.6 MG/DL (8.5-10.1); CARBON DIOXIDE LEVEL 29 MMOL/L (20-31); CHLORIDE LEVEL 106 MMOL/L (98-107); CHOLESTEROL LEVEL 180 MG/DL (<200); CHOLESTEROL RISK RATIO 4.16 (<5); CREATININE FOR GFR 0.69 MG/DL (0.55-1.30); GLOMERULAR FILTRATION RATE > 60.0 (>51); GLUCOSE, FASTING 116 MG/DL (60-100); HDL CHOLESTEROL 43.2 MG/DL (>40); LDL CHOLESTEROL 93.4 MG/DL (<100); NON-HDL-C 136.8 MG/DL; POTASSIUM SERUM 4.7 MMOL/L (3.5-5.1); SODIUM LEVEL 141 MMOL/L (136-145); TOTAL PROTEIN 7.5 G/DL (5.7-8.2); TRIGLYCERIDES LEVEL 217 MG/DL (<150)
[2024-04-18 17:47] LABS: FREE T4 1.12 NG/DL (0.89-1.76)
[2024-04-18 18:14] LABS: HEMOGLOBIN A1c 6.7 % (4.0-6.0)
== END ==
LOC: M SFHCCLAY 08:20
PROVIDERS: ATTEND Nurse Practitioner Family
DX: E11.9 Type 2 diabetes mellitus without complications (principal); F17.200 Nicotine dependence, unspecified, uncomplicated; J43.2 Centrilobular emphysema; R05.3 Chronic cough; R91.8 Other nonspecific abnormal finding of lung field; R05.1 Acute cough

== ENCOUNTER → 2024-06-13 | Outpatient (CLI) | payer OTHER | LOC: M CLY 14:51 | PROVIDERS: ATTEND Nurse Practitioner Family | DX: M25.531 Pain in right wrist (principal); M25.532 Pain in left wrist ==

== ENCOUNTER → 2024-06-13 | Outpatient (REF) | payer OTHER ==
[2024-06-15 13:02] LABS: HPV APTIMA Detected (Not Detected)
== END ==
LOC: M SFHCCLAY 14:40
PROVIDERS: ATTEND Nurse Practitioner Family
DX: Z12.4 Encounter for screening for malignant neoplasm of cervix (principal); R87.612 Low grade squamous intraepithelial lesion on cytologic smear of cervix (LGSIL)

== ENCOUNTER → 2024-06-15 | Outpatient (CLI) | payer OTHER | LOC: M RAD 07:31 | PROVIDERS: ATTEND Nurse Practitioner Family | DX: R91.8 Other nonspecific abnormal finding of lung field (principal); R79.89 Other specified abnormal findings of blood chemistry; K76.0 Fatty (change of) liver, not elsewhere classified; J44.9 Chronic obstructive pulmonary disease, unspecified ==

== ENCOUNTER 2024-09-06 07:10 | Day surgery (SDC) | payer OTHER ==
[~2024-09-06] VITALS: Ht 172.7 cm; Wt 86.1 kg
[~2024-09-06 07:10] MED LIST changes: +FARX1TAB3 PO; +TIRZ2.5P SQ; +mirena
[2024-09-06 07:29] VITALS: TEMP 98.3
[2024-09-06] MEDS ORDERED: LIDOCAINE 2% 100 MG/5 ML SDV (FOR ANES.) As Ordered ONE (08:53)
[2024-09-06 09:20] VITALS: BP 117/56; O2SAT 96
== END 2024-09-06 09:35 | disposition home or self-care (01) ==
LOC: M OPP 07:10
PROVIDERS: ATTEND Surgery
DX: Z12.11 Encounter for screening for malignant neoplasm of colon (principal); K57.30 Diverticulosis of large intestine without perforation or abscess without bleeding; K64.4 Residual hemorrhoidal skin tags; Z88.1 Allergy status to other antibiotic agents; Z88.2 Allergy status to sulfonamides; Z88.8 Allergy status to other drugs, medicaments and biological substances; Z79.82 Long term (current) use of aspirin; Z79.85 Long-term (current) use of injectable non-insulin antidiabetic drugs; Z79.899 Other long term (current) drug therapy; F17.210 Nicotine dependence, cigarettes, uncomplicated

== ENCOUNTER → 2024-09-28 | Outpatient (REF) | payer OTHER ==
[~2024-09-28] MED LIST changes: +DIVA-41 PO; +FREM225A SQ; +HYDR-3363 PO; +LEXA1TAB2 PO; +NEUR100C PO; +VALA-3 PO
[2024-09-28 12:37] LABS: ALT/SGPT 42.0 U/L (7.0-40); AST/SGOT 22.0 U/L (<34); CALCIUM LEVEL 9.2 MG/DL (8.5-10.1); CARBON DIOXIDE LEVEL 29.0 MMOL/L (20-31); CHLORIDE LEVEL 104.0 MMOL/L (98-107); CREATININE FOR GFR 0.91 MG/DL (0.55-1.30); GLOMERULAR FILTRATION RATE 76.9 (>51); POTASSIUM SERUM 4.5 MMOL/L (3.5-5.1); SODIUM LEVEL 142.0 MMOL/L (136-145)
[2024-09-28 12:38] LABS: BASO # 0.1 10^3/uL (0.0-0.2); BASO % 0.9 % (0.0-1.0); EOS # 0.2 10^3/uL (0.0-0.5); EOS % 2.0 % (0.0-3.0); LYMPH # 2.2 10^3/uL (1.5-5.0); LYMPH % 22.8 % (24.0-44.0); MONO # 0.8 10^3/uL (0.0-0.8); MONO % 8.5 % (2.0-8.0); NEUTROPHILS # 6.3 10^3/uL (1.5-8.5); NEUTROPHILS % 65.4 % (36.0-66.0); PLATELET COUNT, AUTOMATED 311 10^3/uL (150-450)
[2024-09-28 12:40] LABS: FREE T4 1.21 NG/DL (0.89-1.76)
[2024-09-28 13:03] LABS: ESTIMATED AVERAGE GLUCOSE 128.0 MG/DL (60-110)
== END ==
LOC: M SFHCCLAY 09:02
PROVIDERS: ATTEND Nurse Practitioner Family
DX: E11.9 Type 2 diabetes mellitus without complications (principal); F17.200 Nicotine dependence, unspecified, uncomplicated; J43.2 Centrilobular emphysema; R05.3 Chronic cough; R91.8 Other nonspecific abnormal finding of lung field

== ENCOUNTER 2024-10-02 07:48 | Day surgery (SDC) | payer OTHER ==
[~2024-10-02] VITALS: Ht 172.7 cm; Wt 85.9 kg
[2024-10-02] MEDS ORDERED: ONDANSETRON 4MG 2ML VIAL As Ordered ONE (08:37)
[2024-10-02] MEDS ORDERED: KETOROLAC 30 MG/ML 1 ML VIAL As Ordered ONE (08:37)
[2024-10-02] MEDS ORDERED: dexAMETHasone 4 MG/ML 1 ML VIAL As Ordered ONE (08:37)
[2024-10-02] MEDS ORDERED: LIDOCAINE 2% 100 MG/5 ML SDV (FOR ANES.) As Ordered ONE (08:38)
[2024-10-02] MEDS ORDERED: MIDAZOLAM INJ 2 MG/2 ML VIAL As Ordered ONE (08:40)
[2024-10-02] MEDS ORDERED: ACETAMINOPHEN 1000MG/100ML IV BAG As Ordered ONE (09:16)
[2024-10-02] MEDS ORDERED: HYDROMORPHONE HCL 0.5 MG/0.5 ML SYRINGE IV PRN (09:55)
[2024-10-02] MEDS ORDERED: LR 1,000 ML IV SCH (09:55)
[2024-10-02] MEDS ORDERED: diphenhydrAMINE 50 MG/ML VIAL IV PRN (09:55)
[2024-10-02 10:50] VITALS: BP 110/62; TEMP 98; O2SAT 96
== END 2024-10-02 10:52 | disposition home or self-care (01) ==
LOC: M SDC 07:48
PROVIDERS: ATTEND Orthopaedic Surgery Hand Surgery
DX: G56.02 Carpal tunnel syndrome, left upper limb (principal); E11.9 Type 2 diabetes mellitus without complications; E78.00 Pure hypercholesterolemia, unspecified; F17.210 Nicotine dependence, cigarettes, uncomplicated; K21.9 Gastro-esophageal reflux disease without esophagitis; Z79.899 Other long term (current) drug therapy; Z79.82 Long term (current) use of aspirin; Z79.85 Long-term (current) use of injectable non-insulin antidiabetic drugs; Z88.2 Allergy status to sulfonamides; Z88.8 Allergy status to other drugs, medicaments and biological substances; Z88.1 Allergy status to other antibiotic agents
CPT/HCPCS: 29848; J0131; J0665; J1100; J1885; J2250; J2405; J3010

== ENCOUNTER 2024-10-16 09:18 | Day surgery (SDC) | payer OTHER ==
[~2024-10-16] VITALS: Ht 172.7 cm; Wt 85.0 kg
[2024-10-16] MEDS ORDERED: LIDOCAINE 2% 100 MG/5 ML SDV (FOR ANES.) As Ordered ONE (10:19)
[2024-10-16] MEDS ORDERED: dexAMETHasone 4 MG/ML 1 ML VIAL As Ordered ONE (10:19)
[2024-10-16] MEDS ORDERED: ACETAMINOPHEN 1000MG/100ML IV BAG As Ordered ONE (10:19)
[2024-10-16] MEDS ORDERED: ONDANSETRON 4MG 2ML VIAL As Ordered ONE (10:19)
[2024-10-16] MEDS ORDERED: MIDAZOLAM INJ 2 MG/2 ML VIAL As Ordered ONE (10:20)
[2024-10-16] MEDS ORDERED: KETOROLAC 30 MG/ML 1 ML VIAL As Ordered ONE (10:39)
[2024-10-16] MEDS ORDERED: ONDANSETRON 4MG 2ML VIAL IV PRN (10:40)
[2024-10-16] MEDS ORDERED: HYDROMORPHONE HCL 0.5 MG/0.5 ML SYRINGE IV PRN (10:40)
[2024-10-16] MEDS ORDERED: LR 1,000 ML IV SCH (10:40)
[2024-10-16] MEDS: LACTATED RINGER'S 1000 ML IV ONE (11:17)
[2024-10-16 11:55] VITALS: BP 91/54; TEMP 96.9; O2SAT 98
== END 2024-10-16 12:08 | disposition home or self-care (01) ==
LOC: M SDC 09:18
PROVIDERS: ATTEND Orthopaedic Surgery Hand Surgery
DX: G56.01 Carpal tunnel syndrome, right upper limb (principal); E11.9 Type 2 diabetes mellitus without complications; J43.2 Centrilobular emphysema; E78.00 Pure hypercholesterolemia, unspecified; K21.9 Gastro-esophageal reflux disease without esophagitis; F17.210 Nicotine dependence, cigarettes, uncomplicated; Z79.899 Other long term (current) drug therapy; Z79.811 Long term (current) use of aromatase inhibitors; G43.809 Other migraine, not intractable, without status migrainosus; Z79.85 Long-term (current) use of injectable non-insulin antidiabetic drugs; Z79.82 Long term (current) use of aspirin; Z88.0 Allergy status to penicillin; Z88.8 Allergy status to other drugs, medicaments and biological substances; Z88.2 Allergy status to sulfonamides
CPT/HCPCS: 29848; J0131; J0665; J1100; J1885; J2250; J2405; J3010